=== PATIENT | female | born 1975 | race African-American/Black ===

== ENCOUNTER 2021-03-09 08:16 | Outpatient (CLI) | payer OTHER, SELFPAY ==
[2021-03-09 09:12] LABS: Creatinine Urine 73.4 mg/dL
[2021-03-09 09:18] LABS: Sodium Urine Random 57 meq/L
[2021-03-09 09:19] LABS: Anion Gap 7 mmol/L (8-16); Blood Urea Nitrogen 51 mg/dL (7-17); Calcium 9.1 mg/dL (8.4-10.2); Carbon Dioxide 21 mmol/L (22-30); Chloride 107 mmol/L (98-107); Estimated Glomerular Filt Rate 12; Glucose 42 mg/dL (65-110); Phosphorus 4.5 mg/dL (2.5-4.5); Potassium 4.5 mmol/L (3.4-5.0); Sodium 135 mmol/L (137-145)
[2021-03-09 09:37] LABS: Free T4 Free Thyroxine 0.92 ng/mL (0.78-2.19)
[2021-03-09 09:44] LABS: Cortisol Random 7.73 ug/dL; Total Triiodothyronine (T3) 1.08 NG/ML (0.97-1.69)
[2021-03-09 10:03] LABS: Total Protein Urine Random 491 mg/dL; Ur Ttl Prot Creatinine Ratio 6.69 mg/mg (0-0.20)
[2021-03-09 10:19] LABS: Eosinophil Urine None Seen % (None Seen)
[2021-03-09 11:58] LABS: Complement C3 89 mg/dL (88-165)
[2021-03-09 12:57] LABS: Hemoglobin A1C 5.8 % (<5.7)
[2021-03-12 05:13] LABS: Adrenocorticotropic Hormone 20 pg/mL (6-50)
[2021-03-12 06:53] LABS: Albumin 3.3 g/dL (3.8-4.8); Alpha 1 Globulin 0.3 g/dL (0.2-0.3); Alpha 2 Globulin 0.8 g/dL (0.5-0.9); Beta 1 Globulin 0.4 g/dL (0.4-0.6); Gamma Globulin 1.2 g/dL (0.8-1.7); Protein, Total 6.4 g/dL (6.1-8.1)
[2021-03-12 11:10] LABS: DHEA-Sulfate 126 mcg/dL (19-231)
[2021-03-13 10:28] LABS: Testosterone Total 28 ng/dL (2-45)
[2021-03-13 11:13] LABS: Metanephrine, Free 71 pg/mL (<=57); Normetanephrine, Free 157 pg/mL (<=148); Total, Free (MN + NMN) 228 pg/mL (<=205)
[2021-03-13 11:59] LABS: ANCA Screen Negative (Negative); Anti Glomerular Basement Memb <1.0 AI (<1.0)
[2021-03-14 19:43] LABS: Creatinine, Random Urine 73 mg/dL (20-275); Total Protein/Creatinine Ratio 4630 mg/g creat (21-161)
[2021-03-17 04:24] LABS: Renin 2.36 ng/mL/h (0.25-5.82)
== END 2021-03-09 08:17 | disposition home or self-care (01) ==
LOC: ANHLAB 08:21
PROVIDERS: PCP Family Medicine Sports Medicine; Visit Provider Internal Medicine Nephrology
DX: E11.29 Type 2 diabetes mellitus with other diabetic kidney complication (principal); I12.9 Hypertensive chronic kidney disease with stage 1 through stage 4 chronic kidney disease, or unspecified chronic kidney disease; N18.4 Chronic kidney disease, stage 4 (severe)
CPT/HCPCS: 36415; 80069; 82024; 82088; 82533; 82570; 82627; 83036; 83520; 83835; 84155; 84156; 84165; 84166; 84244; 84300; 84403; 84439; 84443; 84480; 85999; 86021; 86038; 86039; 86160; 86225

== ENCOUNTER 2021-08-06 19:14 | Observation (INO) | payer OTHER, SELFPAY ==
--- NOTE | ~2021-08-06 | XR_ITS ---
XR chest 1V portable DATE: 08/06/2021 20:11 INDICATION: Shortness of breath TECHNIQUE: Portable AP chest on 08/06/2021 at 2005 hours COMPARISON: 10/17/2020 PA chest FINDINGS: There is pulmonary vascular congestion and redistribution. Heart size appears borderline. There are perihilar and lower lung zone infiltrates which may be due to pulmonary edema. Pneumonia or aspiration are not excluded. Minimal if any pleural effusion. No pneumothorax. Diffuse osteopenia. Mild dextro scoliosis of the thoracic spine. IMPRESSION: Pulmonary vascular congestion bilateral primarily central and lower lung zone infiltrates , which may be due to pulmonary edema. Pneumonia is not excluded Reviewed, dictated and finalized at location A. IMPRESSION: Pulmonary vascular congestion bilateral primarily central and lower lung zone infiltrates, which may be due to pulmonary edema. Pneumonia is not e xcluded
[2021-08-06 19:17] VITALS: PULSE 103
[2021-08-06 19:20] VITALS: BP 218/85; PULSE 103; RESP 22; TEMP 36.8; O2SAT 100; BMI 36.5
[2021-08-06 19:21] VITALS: BMI 36.1
[2021-08-06 19:54] LABS: Basophils Percent Auto 0.2 % (0.2-1.2); Eosinophils Absolute Auto 0.1 K/mm3 (0-0.3); Eosinophils Percent Auto 1.2 % (0-4.4); Hematocrit 24.4 % (37.0-47.0); Hemoglobin 7.7 g/dL (12.0-15.0); Immature Granulocyte Absolute 0.03 K/mm3 (0.00-0.031); Immature Granulocyte Percent A 0.4 % (0-0.5); Lymphocytes Absolute Auto 1.02 K/mm3 (0.9-3.2); Lymphocytes Percent Auto 12.6 % (18.3-44.2); Mean Corpuscular HGB Conc 31.6 g/dl (32-36); Mean Corpuscular Hemoglobin 31.7 pg (26-34); Mean Corpuscular Volume 100.4 fl (80-100); Mean Platelet Volume 11.8 fl (7.4-10.4); Monocytes Absolute Auto 0.5 K/mm3 (0.1-0.6); Monocytes Percent Auto 6.3 % (2.6-8.5); Neutrophils Absolute Auto 6.4 K/mm3 (1.3-6.7); Neutrophils Percent Auto 79.3 % (45.5-73.1); Platelet Count Result 295 k/mm3 (150-375); Red Blood Count 2.43 M/mm3 (4.2-5.4); Red Cell Distribution Width 13.7 % (11.5-14.5); White Blood Count 8.1 K/mm3 (4.5-10.0)
[2021-08-06 20:00] VITALS: PULSE 108
--- NOTE | 2021-08-06 20:00 | ADMGEN ---
This patient, Madi Suarez, was admitted to IMU Room 231-01 at 1901. Patient/family oriented to hospital policies and general routines including ID bracelet, bed and alarms, visiting hours, pain management, procedures, bathroom and other care routines, personal items, smoking policy, room service/diet, and visiting hours. Information on how to activate the Rapid Response Team has been discussed. Patient/Family are encouraged to report perceived risks to care and to ask questions if they do not understand what they are told or what they should do.
[2021-08-06 20:03] LABS: Magnesium 1.9 mg/dL (1.6-2.3); Phosphorus 5.4 mg/dL (2.5-4.5)
[2021-08-06 20:21] LABS: Hemoglobin A1C 6.5 % (<5.7)
[2021-08-06 20:36] VITALS: BP 190/81; PULSE 100; RESP 16; TEMP 37.2; O2SAT 97
[2021-08-06 20:41] LABS: Glucose Point of Care 361 mg/dl (65-105)
[2021-08-06] MEDS: hydrALAZINE HCL 20 MG/ML VIAL 10 MG IV PUSH (20:48)
[2021-08-06] MEDS: INSULIN ASPART (*BKC) 100 UNITS/ML 12 UNITS SUB-Q (20:49)
[2021-08-06 21:10] LABS: Creatinine Urine 22.5 mg/dL; Total Protein Urine Random 170 mg/dL
[2021-08-06 21:14] LABS: Sodium Urine Random 110 meq/L
[2021-08-06 21:41] LABS: Free T4 Free Thyroxine Reflex 1.15 ng/dL (0.78-2.19)
--- NOTE | 2021-08-06 21:41 | PM.IMHP ---
H&P: HPI History of Present Illness Date/Time: Patient was placed observation status for expected length of stay less than 23 hours for management, will plan to re-evaluate tomorrow for improvement. 08/06/21 21:41 Chief Complaint: Edema Narrative: Ms. Suarez is a 45-year-old female who presented to an outside emergency room after seeing her primary care provider in being sent there for edema. Patient states that she had which her primary care provider for increasing edema and 1 she was seen was sent to the emergency room. 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 Patient states she has had dyspnea on exertion for the last month. Patient denies any chest pain, shortness with arrest, orthopnea, or PND. Patient denies any palpitations, lightheadedness, dizziness, syncopal, or near syncopal episodes. Patient states that she has not been taking her blood pressures every day because she does not like how they make her feel. Patient states that she takes her insulin as she feels it is needed. Patient states that she is supposed to be taking Humalog 20 units before meals with sliding scale, but patient only takes sliding scale based on her blood sugar. Patient states her blood glucose levels at home have been running 3-500. Patient states she cannot recall the last time that she did see her laundromat manager. Patient states that she has been urinating without any difficulty and has not noticed a decrease in her urine output. Patient denies any dysuria, hematuria, frequency, or urgency. Patient states she is a type 1 diabetic and was diagnosed at age 14. The patient states she also has a history of hypertension for which she has not been compliant with her medications. Patient also has a history of retinopathy and chronic kidney disease. Patient states she does smoke a half pack of cigarettes a day for last 29 years. Review of Systems Review of Systems: A 12 point review of systems was completed patient all pertinent positive and negative per HPI the remainder are unremarkable. [facility] Past Medical History Medical History (Updated 08/06/21 @ 23:12 by Tamara Lozano APRN) Chronic kidney disease, stage 5, kidney failure Hypertension Hypothyroidism Retinopathy Tobacco abuse Type 1 diabetes Family History Family History Mother Diabetes mellitus Social History Social History Smoking packs per day: 0.5 Smoking cigarettes per day: 10.0 Smoking status: Current every day smoker Tobacco type: cigarettes Alcohol intake: never Substance use: never Spiritual care concerns: No Meds Home Medications and Allergies Home Medications Medication Instructions Recorded Confirmed Type albuterol sulfate [ProAir HFA] 90 mcg INHALATION Q4H PRN 08/06/21 08/06/21 History buspirone 5 mg PO TID PRN 08/06/21 08/06/21 History carvedilol 25 mg PO BID 08/06/21 08/06/21 History fluticasone propionate [Allergy 1 spray INTRANASAL DAILY 08/06/21 08/06/21 History Relief (fluticasone)] insulin lispro [Humalog KwikPen 40 unit SUBCUT TID 08/06/21 08/06/21 History Insulin] levothyroxine 75 mcg PO DAILY 08/06/21 08/06/21 History pitavastatin calcium [Livalo] 1 mg PO HS 08/06/21 08/06/21 History triamcinolone acetonide 1 applic TOPICAL TID 08/06/21 08/06/21 History Allergies Allergy/AdvReac Type Severity Reaction Status Date / Time diltiazem Allergy Unknown Verified 08/06/21 20:01 metoprolol Allergy Unknown Verified 08/06/21 20:01 Tcibrkx-FHB-HdT Reductase Allergy Unknown Verified 08/06/21 20:01 Inhibitor Vital Signs Vital Signs - 24 hr 08/06/21 19:17 08/06/21 19:20 08/06/21 20:00 Temperature 36.8 C Pulse Rate 103 H 103 H 108 H Respiratory Rate 22 H Blood Pressure 218/85 H Pulse Oximetry 100 08/06/21 20:36 Temperatu
[2021-08-06] MEDS: ACETAMINOPHEN 325 MG TABLET 650 MG PO (21:54)
[2021-08-06 22:00] VITALS: PULSE 102
[2021-08-06 22:03] VITALS: BP 185/79; BP 200/78
[2021-08-06 22:41] LABS: Total Triiodothyronine (T3) 1.22 NG/ML (0.97-1.69)
[2021-08-06 23:31] LABS: Alanine Aminotransferase 27 U/L (4-35); Albumin Level 2.9 g/dL (3.5-5.1); Alkaline Phosphatase 100 U/L (38-126); Anion Gap 6 mmol/L (8-16); Aspartate Amino Transferase 21 U/L (14-36); Bilirubin,Total 0.3 mg/dL (0.2-1.3); Blood Urea Nitrogen 49 mg/dL (7-17); Calcium 8.2 mg/dL (8.4-10.2); Carbon Dioxide 18 mmol/L (22-30); Chloride 107 mmol/L (98-107); Estimated CRCL calculation 13 ml/min; Estimated Glomerular Filt Rate 9; Glucose 370 mg/dL (65-110); Potassium 4.6 mmol/L (3.4-5.0); Sodium 131 mmol/L (137-145)
[2021-08-06 23:54] LABS: Vitamin D 25 Hydroxy < 12.8 ng/mL
[2021-08-07] VITALS (11 sets, daily range): BP systolic 153–188; BP diastolic 62–74; PULSE 77–106; RESP 15–20; TEMP 36.6–37; O2SAT 98–100
[2021-08-07] MEDS: carvediloL 25 MG TABLET PO ×2 (01:43→08:36)
[2021-08-07 05:11] LABS: Basophils Percent Auto 0.4 % (0.2-1.2); Eosinophils Absolute Auto 0.2 K/mm3 (0-0.3); Eosinophils Percent Auto 2.7 % (0-4.4); Hematocrit 21.6 % (37.0-47.0); Immature Granulocyte Absolute 0.02 K/mm3 (0.00-0.031); Immature Granulocyte Percent A 0.4 % (0-0.5); Lymphocytes Absolute Auto 1.11 K/mm3 (0.9-3.2); Lymphocytes Percent Auto 20.3 % (18.3-44.2); Mean Corpuscular Hemoglobin 31.5 pg (26-34); Mean Corpuscular Volume 101.4 fl (80-100); Mean Platelet Volume 11.4 fl (7.4-10.4); Monocytes Absolute Auto 0.6 K/mm3 (0.1-0.6); Monocytes Percent Auto 11.5 % (2.6-8.5); Neutrophils Absolute Auto 3.6 K/mm3 (1.3-6.7); Neutrophils Percent Auto 64.7 % (45.5-73.1); Platelet Count Result 252 k/mm3 (150-375); Red Blood Count 2.13 M/mm3 (4.2-5.4); Red Cell Distribution Width 13.5 % (11.5-14.5); White Blood Count 5.5 K/mm3 (4.5-10.0)
[2021-08-07 05:15] LABS: Hemoglobin 6.7 g/dL (12.0-15.0)
[2021-08-07 05:20] LABS: Albumin Level 2.8 g/dL (3.5-5.1); Anion Gap 6 mmol/L (8-16); Blood Urea Nitrogen 47 mg/dL (7-17); Calcium 8.2 mg/dL (8.4-10.2); Carbon Dioxide 17 mmol/L (22-30); Chloride 109 mmol/L (98-107); Estimated CRCL calculation 13 ml/min; Estimated Glomerular Filt Rate 9; Glucose 212 mg/dL (65-110); Magnesium 1.9 mg/dL (1.6-2.3); Phosphorus 5.9 mg/dL (2.5-4.5); Potassium 4.7 mmol/L (3.4-5.0); Sodium 132 mmol/L (137-145)
[2021-08-07 05:35] LABS: Glucose Point of Care 229 mg/dl (65-105)
[2021-08-07] MEDS: LEVOTHYROXINE SODIUM 75 MCG TABLET PO (05:54)
[2021-08-07 06:10] LABS: Hematocrit 22.1 % (37.0-47.0)
[2021-08-07 07:47] LABS: Glucose Point of Care 301 mg/dl (65-105)
[2021-08-07] MEDS: HEPARIN SODIUM 5,000 UNITS/ML VIAL 5000 UNITS SUB-Q (08:39)
[2021-08-07] MEDS: INSULIN ASPART (*BKC) 100 UNITS/ML SUB-Q ×2 (08:39→12:28)
--- NOTE | 2021-08-07 10:45 | PM.CNNEP ---
Assessment and Plan Additional Plan 1. The patient has chronic kidney disease. Most likely this is due to diabetes and hypertension. It looks like both have not been under very good control over the years. Lately her sugars had been better as her A1c was only 5, likely due to retention of insulin because of her renal disease. Her creatinine was 4.8 back in March and now is 5.9. She is has had some progression of her renal disease. She is not have any morning nausea, poor appetite, change in sleep habits, or mental status changes. She does not seem to have any signs or symptoms of uremia. She does have some volume overload however. At this point she does not need emergent dialysis. We can follow her labs as we get her sugars and her blood pressure under better control. Dr. Geramn will be back on Monday. 2. The patient has hypertension. Her blood pressure was high on admission but has come down to about 150. She is currently on hydralazine as needed. I agree with restarting her carvedilol. 3. The patient has diabetes. She is on insulin sliding scale and Accu-Cheks per hospitalist. 4. The patient continues to smoke. She should quit smoking. 5. The patient has hypothyroidism. Her TSH is elevated. She is being resumed on her levothyroxine. History of Present Illness Reason for Consult Consult date: 08/07/21 Chief Complaint Chief complaint: Chronic Renal Failure History of Present Illness Narrative: ?Hernia is a very pleasant 45-year-old lady who has multiple medical problems including chronic kidney disease stage 5 under the care of Dr. German, diabetes, retinopathy, neuropathy, hypertension, tobacco use, hypothyroidism. The patient came in the hospital because she did not feel well. She went to the emergency room in [place] and was found to have an elevated creatinine. She was sent for further evaluation at [facility] because they have no fuel cell engineer in [place]. The patient has had some edema. She also has had some shortness of breath with exertion. This has all been going on for the last month. She follows her blood pressure at home. Generally she runs 140s to 150s but in the last couple of weeks it is been 160s to 180s. She follows her blood sugars at home as well. Her last A1c was 5 in May which was surprising to her. However she has not had 1 since then. Her blood sugars have been high at home in the last few days. Last time she saw Dr. German the talked about her getting on the transplant list, getting some education about dialysis. Since she saw Dr. German she moved to [place]. So she did not do either of those tasks. Review of Systems Constitutional: Constitutional: Reports no additional constitutional complaints Eyes: Eyes: Reports no additional eye complaints ENT: Reports system reviewed and no additional complaints, except as documented Cardiovascular: Cardiovascular: Reports no additional cardiovascular complaints Respiratory: Respiratory: Reports no additional respiratory complaints Gastrointestinal: Gastrointestinal: Reports no additional gastrointestinal complaints Genitourinary: Genitourinary: Reports no additional female genitourinary complaints Musculoskeletal: Musculoskeletal: Reports no additional musculoskeletal complaints Integumentary/Breasts: Skin/Breast: Reports system reviewed and no additional complaints, except as docu Neurologic: Reports system reviewed and no additional complaints, except as documented Psychiatric: Psychiatric: Reports no additional psychiatric complaints Endocrine: Endocrine: Reports no additional endocrine complaints [facility] Past Medical History Medical History Chronic kidney disease, stage 5, kidney failure Hypertension Hypothyroidism Retinopathy Tobacco abuse Type 1 diabetes Family History Family History Mother
[2021-08-07 11:52] LABS: Glucose Point of Care 286 mg/dl (65-105)
--- NOTE | 2021-08-07 13:29 | PM.DS ---
DS: Admitting Diagnosis Discharge Date June 01, 2021 Admitting Diagnosis chronic kidney disease DS: Discharge Diagnosis Discharge Diagnosis (1) Chronic kidney disease, stage 5, kidney failure: Code(s): N18.5 - Chronic kidney disease, stage 5 Status: Acute Assessment and Plan: Chronic kidney disease stage 5. Nephrology was consulted outpatient monitoring. Patient will likely need hemodialysis in the near future. No urgent need for dialysis here (2) Type 1 diabetes: Code(s): E10.9 - Type 1 diabetes mellitus without complications Status: Acute Assessment and Plan: Continue home meds. 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 She will follow up with her primary care physician. Noncompliance (3) Hypertension: Code(s): I10 - Essential (primary) hypertension Status: Acute Assessment and Plan: Noncompliance to blood pressure meds. Recommended she continue using home on discharge. Patient expressed agreement (4) Tobacco abuse: Code(s): Z72.0 - Tobacco use Status: Acute Assessment and Plan: Cessation counseled (5) Hypothyroidism: Code(s): E03.9 - Hypothyroidism, unspecified Status: Acute Assessment and Plan: Multiple times within normal limits follow-up CT DS: Summary Hospital Course Hospital Course: [facility] plan and diagnoses. Time Spent with Patient Time attestation: Total time spent providing and/or coordinating discharge services: 45 min Exam Narrative: Constitutional: Patient is well-nourished in no acute distress. Patient is alert and oriented x3 HEENT: Moist mucous membranes. No scleral icterus. No lymphadenopathy. Neck: No carotid bruits noted no JVD noted Lungs: Lung sounds are clear to auscultation bilaterally. No accessory muscle use. No rhonchi, rales, or wheezes noted. Cardiovascular: Apical pulse is regular rate and rhythm. S1-S2 noted, no S3 or S4 noted. No gallops, murmurs, or rubs noted. Abdomen: Soft, round, and nontender. No palpable masses. Extremities: 1+ edema to bilateral lower extremities. Nontender. Skin: No rashes or lesions. Warm and dry. Skin is intact. Neurological: No focal neurological deficits. Cranial nerves II-XII grossly intact. Psychiatric: Cooperative, appropriate mood, and affect DS: Data Data Completed and Pending Labs on day of discharge: Labs from last 24 hours 08/07/21 08/07/21 08/07/21 12:23 11:38 07:17 WBC RBC Hgb 7.0 L Hct 22.0 L MCV MCH MCHC RDW Plt Count MPV Immature Gran % (Auto) Neut % (Auto) Lymph % (Auto) [place] % (Auto) Eos % (Auto) Baso % (Auto) Lymph # (Auto) [place] # (Auto) Eos # (Auto) Baso # (Auto) Abs Immat Gran (auto) Absolute Neuts (auto) Absolute Nucleated RBC Nucleated RBC % Sodium Potassium Chloride Carbon Dioxide Anion Gap BUN Creatinine Estim Creat Clear Calc Estimated GFR Glucose POC Capillary Glucose 286 H 301 H Hemoglobin A1c Calcium Phosphorus Magnesium Total Bilirubin AST ALT Alkaline Phosphatase Total Protein Albumin Vitamin D 25-Hydroxy TSH (Reflex) Free T4 Total T3 PTH Related Protein U Random Total Protein Ur Random Sodium Urine Creatinine 08/07/21 08/07/21 08/07/21 06:05 05:30 05:05 WBC RBC Hgb 7.0 L Hct 22.1 L MCV MCH MCHC RDW Plt Count MPV Immature Gran % (Auto) Neut % (Auto) Lymph % (Auto) [place] % (Auto) Eos % (Auto) Baso % (Auto) Lymph # (Auto) [place] # (Auto) Eos # (Auto) Baso # (Auto) Abs Immat Gran (auto) Absolute Neuts (auto) Absolute Nucleated RBC Nucleated RBC % Sodium 132 L Potassium 4.7 Chloride 109 H Carbon Dioxide 17 L Anion Gap 6 L BUN 47 H Creatinine 5.90 H Estim Creat Clear Calc 13
[2021-08-12 16:57] LABS: Parathyroid Hormone Related Pr 23 pg/mL (11-20)
== END 2021-08-07 14:27 | disposition home or self-care (01) ==
PROVIDERS: Internal Medicine; Nurse Practitioner Adult Health; Admitting Provider Internal Medicine; PCP Family Medicine Sports Medicine; Visit Provider Chiropractor
DX: I12.0 Hypertensive chronic kidney disease with stage 5 chronic kidney disease or end stage renal disease (principal); E10.22 Type 1 diabetes mellitus with diabetic chronic kidney disease; N18.6 End stage renal disease; R60.0 Localized edema; R06.09 Other forms of dyspnea; Z79.4 Long term (current) use of insulin; E03.9 Hypothyroidism, unspecified; E10.319 Type 1 diabetes mellitus with unspecified diabetic retinopathy without macular edema; E10.40 Type 1 diabetes mellitus with diabetic neuropathy, unspecified; F17.210 Nicotine dependence, cigarettes, uncomplicated; Z79.51 Long term (current) use of inhaled steroids
CPT/HCPCS: 36415; 71045; 80053; 80069; 81050; 82306; 82570; 82948; 83036; 83519; 83735; 84100; 84156; 84300; 84439; 84443; 84480; 85014; 85018; 85025; 96372; 96374; A9270; G0378; G0379; J0360; J1644; J1815

== ENCOUNTER 2025-03-11 09:17 | Outpatient (CLI) | payer MEDICARE, SELFPAY ==
--- OUTSIDE RECORDS SUMMARY | 2023-12-01 07:30 | XMS_ITS ---
Author Organization [facility] Address [address] [facility] [address] [place] [address] Care Team Providers Care Gate Watch Name Role Phone Coretta Sahu Primary Care Provider Tam Cardenas [phone] REASON FOR VISIT Dexcom Encounters Encounter Location Date Provider Diagnosis [place] [address] [place] [address] 12/01/2023 Tam Thompson Plan Of Treatment No Information Progress Notes * Evelin SUAREZ LDOB: [birth year] (49 yo F)Acc No.[id number]:12/01/2023 Patient: Evelin PEGUERO Provider: Juan F Thompson MD :1975 A ge:48 Y S ex:Female Date:12/01/2023 Address:[address] , [address] [address] Pcp:Coretta Sahu Subjective: * Chief Complaints: * 1 . Dexcom. Objective: * Vitals: Assessment: Plan: * Treatment: * Billing Information: * Visit Code: * Procedure Codes: * Electronic signature of Sunni Thompson MD on 03/11/2025 at 09:35 AM EMERGENCY VETERINARY ASSISTANT Sign off status: Pending * Provider: Juan F Thompson MD Date: 0 12/01/2023 Generated for Printi ng/Faxing/eTransmitting on: 1 05/11/2024 09:35 AM EMERGENCY VETERINARY ASSISTANT
--- OUTSIDE RECORDS SUMMARY | 2024-06-14 08:15 | XMS_ITS ---
Author Organization [facility] Address [address] [place] [facility] [address] [place] [address] Care Team Providers Care Crime Scene Investigator Name Role Phone Coretta Sahu Primary Care Provider Tam Cardenas Unavailable [phone] REASON FOR VISIT Dexcom, Dexcom, Diabetes Medications Medication SIG (Take, Route, Frequency, Duration) Notes Start Date End Date Status Carvedilol 25 MG 2 tabs Orally 2 time s a day duplicate Active Calcium Acetate 667 MG 2 tablets with me als Orally Three times a day; Duration: 30 day(s) Active BD Pen Needle Alexa 2nd Gen 32G X 4 MM to inject insulin subcutaneously Four times a day E10.65 Active OneTouch Ultra - to test blood sugars by finger stick Four times a day E10.65 Active Tresiba FlexTouch 100 UNIT/ML 20 units subcutaneously Once a day E10.65 Active NIFEdipine ER 90 MG 1 tablet on an empty stomach Orally Once a day Active COPY CHIEF Thyroid 90 MG 1 tablet on an empty stomach Orally Once a day; Duration: 90 days 02/09/2024 Active Dexcom G7 Sensor - - - every 10 days 08/11/2023 Active Gvoke HypoPen 2-Pack 1 MG/0.2ML inject entire contents Subcutaneous for hypo event Active HumaLOG KwikPen 200 UNIT/ML 10 units subcutaneously Three times a day Active Dexcom G7 Director [employer] - as directed Active Encounters Encounter Location Date Provider Diagnosis [facility] [address] [place] [address] 06/14/2024 Tam Thompson Hyperglycemia due to type 1 diabetes mellitus E10.65 ; Type 1 diabetes mellitus with diabetic polyneuropathy E10.42 ; Essential (primary) hypertension I10 ; Mixed hyperlipidemia E78.2 ; Carotid bruit R09.89 ; ESRD (end stage renal disease) N18.6 ; snf (current) use of insulin Z79.4 ; Hypothyroidism (acquired) E03.9 ; Tobacco abuse Z72.0 ; Dietary counseling and surveillance Z71.3 and Other obesity due to excess calories E66.09 Assessments Encounter Date Diagnosis (ICD Code) Assessment Notes Treatment Notes Treatment Clinical Notes Section Notes 06/14/2024 Hyperglycemia due to type 1 diabetes mellitus (ICD-10 - E10.65) Takes insulin 4 times a day and test blood sugars 4 times a day. Old records reveiwed DM since age 15 Explained in detail about how to adjust insulin before meals. On Dialysis Mar 2024: Dexcom reviewed, PP hyperglycemia and overnight hypoglycemi due to insulin taken post meals Tresiba 18 units three days a week Meal insulin 5 plus SS, advised to do before meals not after, ESRD on dialysis, awaiting transplant TSH 30 as she ran out of meds for a week at the time of the lab Restart med and recheck in 6 weeks 06/14/2024 Type 1 diabetes mellitus with diabetic polyneuropathy (ICD-10 - E10.42) 06/14/2024 Essential (primary) hypertension (ICD-10 - I10) controlled. 2 g sodium diet. Blood pressure goal less than 130/80. 06/14/2024 Mixed hyperlipidemia (ICD-10 - E78.2) COntrolled. LDL goal < 100. 06/14/2024 Carotid bruit (ICD-10 - R09.89) 06/14/2024 ESRD (end stage renal disease) (ICD-10 - N18.6) 06/14/2024 snf (current) use of insulin (ICD-10 - Z79.4) 06/14/2024 Hypothyroidism (acquired) (ICD-10 - E03.9) 06/14/2024 Tobacco abuse (ICD-10 - Z72.0) 06/14/2024 Dietary counseling and surveillance (ICD-10 - Z71.3) 06/14/2024 Other obesity due to excess calories (ICD-10 - E66.09) Plan Of Treatment Treatment Notes Assessment Notes Hyperglycemia due to type 1 diabetes leslie litus Takes insulin 4 times a day and test blood sugars 4 times a day. Progress Notes * Evelin SUAREZ LDOB: [birth year] (49 yo F)Acc No.[id number]:06/14/2024 Patient: Evelin PEGUERO Provider: Juan F Thompson MD :1975 A ge:48 Y S ex:Female Date:06/14/2024 Address:[address] [place] [address] , [place] [address] Pcp:Coretta Sahu Subjective: * Chief Complaints: * 1 . Dexcom. 2. Dexcom. 3. Diabetes. Objective: * Vitals: Assessment: * Assessment: 1. H yperglycemia due to type 1 diabetes mellitus - E10.65 (Primary) 2 . T ype 1 diabetes mellitus with diabetic polyneuropathy - E10.42 3 . E ssential (primary) hypertension - I10 4 . M ixed hyperlipidemia - E78.2 5 . Carotid bruit - R09.89 6 . E SRD (end stage renal disease) - N18.6 ? 7 . L marino term (current) use of insulin - Z79.4 8 . H ypothyroidism (acquired) - E03.9 9 . T obacco abuse - Z72.0 1 0. D ietary counseling and surveillance - Z71.3 1 1. O ther obesity due to excess calories - E66.09 Plan: * Treatment: 2. E ssential (primary) hypertension Clinical Notes: controlled. 2 g sodium diet. Blood pressure goal less than 130/80. 3. M ixed hyperlipidemia Clinical Notes:COntrolled. LDL goal < 100. * Billing Information: * Visit Code: * Procedure Codes: * Electronic signature of Sunni Thompson MD on 03/11/2025 at 09:35 AM EXECUTIVE ADMINISTRATIVE ASSISTANT Sign off status: Pending * Provider: Juan F Thompson MD Date: 0 06/14/2024 Generated for Ang boswell/Mark/eTtcsmitting on: 1 05/11/2024 09:35 AM EXECUTIVE ADMINISTRATIVE ASSISTANT History and Physical Notes * HPI (History of Present Illness) Category Sub-Category Detail Notes Category Not es Interim History Tests/Studies: Consultations Hospitalizations Emergency Department visits Changes in PMH Since last visit History since last visit Medication changes Surgery Diabetes Diabetes Duration: > 30 years Since age 14 Current Treatment: Insulin Mar 2024: Humalog non dialysis days Tresiba 18 units Three days a week. 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 Bracelet: No Do you check BS before Driving: No Education Barriers: None DM management complicated by : Noncompliance with Diet, Noncomplaince with Exercise Weight Change: Stable Autonomic Neuropathy abdominal fullness nausea vomiting urinary problems sexual difficulty night sweats cold feet leg swelling dizziness Registry FLU Vaccine Status: Received Pneumonia Vaccine Status: Not Received Smoking Status: Current 1/2 PPD since Date Assessed: 10/30/2020 Cessation Counselling Provided: 10/31/19 Depression Screening PHQ-2 Little interest or pleasur e in doing things?: No Feeling Down, Depressed or Hopeless?: No Social Assessments Health Literacy Low Health Literacy: No Cognitive Assessment Cognitive Dysfunction: No Functional Assessment Visual Impairment: No Hearing Impairment: No Mobility/Dexerity Issues: No Swallowing Problems: No Frequent Falls: No Functional Status: 1 Losing Balance: No Dependence for ADL: No Risk for Fall: No Social Support Assessment Isolation: No Transportation difficulties: No Lack of motivation: No Caregiver Stress: No Financial Difficulties: No Major Events self/family Members interfe ring with self-Care: No Difficulty with care corodination and fa cilitation: No Nonadherence: No Inadequate Medical Visits: No Inadequate Monitoring: No Not integrating recommendations from Pro viders: No Health Beliefs interfering with therapy: No Living Condition Lives with: Significant Other Lives in: Home Functional Barriers at the living place: No Caregiver: Self Examination Category Sub-Category Detail Notes Category Not es General Examination HEENT: Normocephalic, atraum atic Neck, Thyroid : Supple, no thyromega ly, no lymphadenopathy, no JVD, no carotid bruit Heart: RRR, normal S1S2, Sy s murmur and Left carotid bruit, rub, or gallop Lungs: Clear to auscultatio n bilaterally, no wheezes, rhonchi, or rales Abdomen: Soft, NT/ND, BS pres ent, no guarding or rebound, no masses palpated, no hepatosplenomegaly Extremities: No clubbing, cyanosi s, or edema, pulses 2+ bilaterally General Appearance: Well developed and w ell- nourished, NAD Skin: No rash or skin lesi ons Neurologic Exam: Non-focal exam, CN's II-XII grossly intact Oral Cavity Normal, moist mucus membranes Diabetic Foot Exam Visual Inspection: Exam Perfo rmed : Yes Date:: 12/31/2021 Bilateral leg swelli ng Nails: Normal Skin: Normal Pulses: Normal Vibration: Reduced Monofilament: Normal Footwear Evaluation Performed: Yes Images: 12/31/2021 Opthamology Referral Diabetic Retinopathy Screen ing: Yes Procedure Performed: Yes Date: Seen by Telemed Date seen: 02/09/2024
--- OUTSIDE RECORDS SUMMARY | 2025-01-31 08:30 | XMS_ITS ---
Author Organization [facility] Address [address] [facility] [address] [place] [address] Care Team Providers Care Belt Press Operator Name Role Phone Coretta Sahu Primary Care Provider Tam Cardenas Unavailable [phone] REASON FOR VISIT Dexcom, Diabetes Medications Medication SIG (Take, Route, Frequency, Duration) Notes Start Date End Date Status Lancets - use one lancet to check blood glucose levels three times a day; Duration: 90 days ; please dispense per insurance formulary. 11/21/2024 Active Gvoke HypoPen 2-Pack 1 MG/0.2ML inject entire contents Subcutaneous for hypo event; Duration: 90 days Active SOLAR INSTALLATION CREW SUPERVISOR Thyroid 120 MG 1 tablet on an empty stomach Orally Once a day; Duration: 30 days patient must call office for refills; E03.9 02/09/2024 Active Contour Next Gen Monitor w/Device dispense one kit for blood sugar monitoring three times a day; Duration: 30 days 11/21/2024 Active Contour Next Test - use one strip via meter 3 times a day; Duration: 90 days 11/21/2024 Active HumaLOG KwikPen 200 UNIT/ML 10 units subcutaneously Three times a day Active hydrALAZINE HCl 50 MG 1 tablet with food Orally Twice a day Active OneTouch Ultra - to test blood sugars by finger stick Four times a day Active Insulin Degludec FlexTouch 100 UNIT/ML inject 20 units Subcutaneous once a day formulary compliance; E1006/27/2024 Active NIFEdipine ER 90 MG 1 tablet on an empty stomach Orally Once a day Active Dexcom G7 Sensor - - - every 10 days 08/11/2023 Active Carvedilol 25 MG 2 tabs Orally 2 time s a day duplicate Active traZODone HCl 100 MG Oral; Duration: 30 Days Active BD Pen Needle Alexa 2nd Gen 32G X 4 MM to inject insulin subcutaneously Four times a day E10.65 Active Dexcom G7 Pottery Decoration Designer - as directed Active Calcium Acetate 667 MG 2 tablets with meals Orally Three times a day; Duration: 1 days DENIED: Provider does not manage this medication. Please have patient contact her PCP. Thank you. Active PARoxetine HCl 10 MG Oral; Duration: 30 Days Active Azelastine HCl 0.05 % Ophthalmic; Duration: 90 Days Active Encounters Encounter Location Date Provider Diagnosis [place] [address] [place] [address] 01/31/2025 Tam Thompson Hyperglycemia due to type 1 diabetes mellitus E10.65 ; Type 1 diabetes mellitus with diabetic polyneuropathy E10.42 ; Essential (primary) hypertension I10 ; Mixed hyperlipidemia E78.2 ; Carotid bruit R09.89 ; ESRD (end stage renal disease) N18.6 ; intermediate frame tender (current) use of insulin Z79.4 ; Hypothyroidism (acquired) E03.9 ; Tobacco abuse Z72.0 ; Dietary counseling and surveillance Z71.3 and Other obesity due to excess calories E66.09 Assessments Encounter Date Diagnosis (ICD Code) Assessment Notes Treatment Notes Treatment Clinical Notes Section Notes 01/31/2025 Hyperglycemia due to type 1 diabetes mellitus (ICD-10 - E10.65) Takes insulin 4 times a day and test blood sugars 4 times a day. Old records reveiwed DM since age 15 Explained in detail about how to adjust insulin before meals. On Dialysis July 2024: Dexcom reviewed, PP hyperglycemia and overnight hypoglycemi due to insulin taken post meals Tresiba 18 units three days a week Meal insulin 3 plus SS, advised to do before meals not after, ESRD on dialysis, awaiting transplant TSH 11 on 90 mg, cahnge to 120 mg 01/31/2025 Type 1 diabetes mellitus with diabetic polyneuropathy (ICD-10 - E10.42) 01/31/2025 Essential (primary) hypertension (ICD-10 - I10) controlled. 2 g sodium diet. Blood pressure goal less than 130/80. 01/31/2025 Mixed hyperlipidemia (ICD-10 - E78.2) COntrolled. LDL goal < 100. 01/31/2025 Carotid bruit (ICD-10 - R09.89) 01/31/2025 ESRD (end stage renal disease) (ICD-10 - N18.6) 01/31/2025 intermediate frame tender (current) use of insulin (ICD-10 - Z79.4) 01/31/2025 Hypothyroidism (acquired) (ICD-10 - E03.9) 01/31/2025 Tobacco abuse (ICD-10 - Z72.0) 01/31/2025 Dietary counseling and surveillance (ICD-10 - Z71.3) 01/31/2025 Other obesity due to excess calories (ICD-10 - E66.09) Plan Of Treatment Treatment Notes Assessment Notes Hyperglycemia due to type 1 diabetes leslie beckus Takes insulin 4 times a day and test blood sugars 4 times a day. Progress Notes * Evelin SUAREZ LDOB: [birth year] (49 yo F)Acc No.[id number]:01/31/2025 Patient: Evelin PEGUERO Provider: Juan F Thompson MD :1975 A ge:49 Y S ex:Female Date:01/31/2025 Address:[address] [place] [address] , [place] [id number] Pcp:Coretta Sahu Subjective: * Chief Complaints: * 1 . Dexcom. 2. Diabetes. Objective: * Vitals: Assessment: * Assessment: [...] Thompson MD on 03/11/2025 at 09:35 AM DRAWING TRACER Sign off status: Pending * Provider: Juan F Thompson MD Date: Generated for Ang boswell/Mark/eTransmitting on: 05/11/2024 09:35 AM DRAWING TRACER History and Physical Notes * HPI (History of Present Illness) Category Sub-Category Detail Notes Category Not es Interim History Tests/Studies: Consultations Hospitalizations Emergency Department visits Changes in PMH Since last visit History since last visit Medication changes Surgery Diabetes Diabetes Duration: > 30 years Since age 14 Current Treatment: Insulin July 2024: Humalog 5plus SS Tresiba 18 units Three days a week. 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
--- NOTE | ~2025-03-11 | CT_ITS ---
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 Technique: Axial images obtained of the brain without contrast. One or more of the following dose reduction techniques were used: automated exposure control, adjustment of the mA and/or kV according to patient size, use of iterative reconstruction technique. Findings: No acute infarct or parenchymal hemorrhage. No abnormal mass or mass effect. No midline shift. No extra-axial fluid collections. No hydrocephalus. Mastoid air cells unremarkable. Sinuses and orbits unremarkable. No acute fracture. No significant facial or scalp soft tissue swelling evident. No radiopaque foreign body is seen. Impression: 1.No acute intracranial abnormality. Reviewed, dictated and finalized at location P. ER DRIVER Impression: 1.No acute intracranial abnormality.
--- OUTSIDE RECORDS SUMMARY | 2025-03-11 09:35 | XMS_ITS | Encounter Summary ---
Author Organization [facility] Address [address] [place] [address] Care Team Providers Care Sandfill Operator Name Role Phone Coretta Sahu DO Primary Care Provider Mirella Rasmussen RN Unavailable Louis Fenton MD Unavailable Mahendra Singletary MD Unavailable [phone] Juwan Hurtado MD Unavailable [phone] Encounter Details Date Type Department Care Team (Late st Contact Info) Description 03/09/2023 [facility] [address] [place], [place] [id number] Shiraz Kunz MD [address] [facility] [address] [place], [place] [id number] Social History Tobacco Use Types Packs/Day Years Used Date Smoking Tobacco: Every Day Cigarettes 0.5 8 Passive Smoke Exposure: Current AUDIT-C Answer Date Recorded Q1: How often do you have a drink containing alcohol? Never 10/11/2022 Q2: How many drinks containi ng alcohol do you have on a typical day when you are drinking? Patient does not drink Q3: How often do you have si x or more drinks on one occasion? Never 10/11/2022 Comments Unknown Sex and Gender Information Value Date Recorded Sex Assigned at Not on file Legal Sex Female 4:44 PM SILVER BUFFER Gender Identity Female 09/21/2022 10:17 AM CDT Sexual Orientation Straight 09/21/2022 10 :17 AM CDT documented as of this encounter Functional Status * BP Location Answer Date of Assessment Author Right arm 03/09/2023 10:02 AM SILVER BUFFER Savi Chung MA * Alcohol Withdrawal BP Hierarchy Answer Date of Assessment Author 66 03/09/2023 10:02 AM SILVER BUFFER Savi Chung MA * BP Location Answer Date of Assessment Author Right arm 03/09/2023 10:02 AM Savi Nunez MA documented as of this encounter Plan of Treatment Not on file documented as of this encounter Visit Diagnoses Not on filedocumented in this encounter Care Teams Sandfill Operator Relationship Specialty Start Date End Date Goran SahucyDO [address] [place] [address] [place] [address] PCP - General Sports Medicine 03/31/22 Mirella Rasmussen, RN [address] [address] Sawmill Moulder Operator 03/31/22 Louis Fenton MD [address] [place] [address] [place] [address] Nephrology 04/18/22 Mahendra Singletary MD Three [facility]. [address] [id number] Consulting Physician Cardiovascular Disease 12/21/23 Juwan Hurtado MD Three [facility]. [facility] [address] [place], [place] [address] Consulting Physician Cardiology 05/09/24 documented as of this encounter
--- OUTSIDE RECORDS SUMMARY | 2025-03-11 09:35 | XMS_ITS ---
Author Organization [facility] Address [address] [place] [id number] Care Team Providers Care Alarm Adjuster Name Role Phone Coretta Sahu DO Primary Care Provider [phone] Mirella Rasmussen RN Unavailable Louis Fenton MD Unavailable Mahendra Singletary MD Unavailable [phone] Juwan Hurtado MD Unavailable [phone] Transplant Episode Kidney Candidate [facility] ([place], [place]) [facility] waitlisted on 05/30/2023 Marked as Inactive on 12/21/2023 Reason: 07 - Temporarily Too Sick Kidney CoordinatorMirella Rasmussen RN Fax: N/A Email: N/A Scores Score Value Updated Exceptions/Reas ons CPRA Not available EPTS (Calc) 65 03/11/2025 [place] Organ Diagnosis Organ Primary Contributory Kidney Diabetes Mellitus - Type I Care Team Name Role Phone Fax Email Mirella Rasmussen RN Kidney Coordinator [phone] N/A N/A Alejo Scott Preschool Assistant Teacher N/A N/A N/A Dina Bell Primary Station Supervisor N/A N/A N/A Louis Fenton MD Referring Physician [phone] N/A Events Pre-Transplant Referred: 03/31/2022 Evaluation began: 06/15/2022 Committee: 05/29/2023 UNOS qualified: 11/15/2021 Center waitlisted: 05/30/2023 Dialysis History Dialysis History Start End Type Comments Center 11/15/2021 In-center Hemodialysis [facility] Information Center Phone Fax Address [facility] [phone] [place] [address]
--- OUTSIDE RECORDS SUMMARY | 2025-03-11 09:35 | XMS_ITS | Encounter Summary ---
Author Organization [facility] Address [address] [place] [address] Care Team Providers Care Concrete Stone Fabricator Name Role Phone Coretta Sahu DO Primary Care Provider [phone] Mirella Rasmussen RN Unavailable [phone] Louis Fenton MD Unavailable Mahendra Singletary MD Unavailable [phone] Juwan Hurtado MD Unavailable [phone] Encounter Details Date Type Department Care Team (Late st Contact Info) Description 11/14/2022 Telephone [facility] at [facility] [address] [place], [place] [id number] Barron Kunz MD [address] [address] [place] [address] [place], [place] [id number] Social History Tobacco Use Types Packs/Day Years [...] on file Legal Sex Female 4:44 PM SUPERVISOR LIQUEFACTION Gender Identity Female 09/21/2022 10:17 AM CDT Sexual Orientation Straight 09/21/2022 10 :17 AM CDT documented as of this encounter Plan of Treatment Not on file documented as of this encounter Visit Diagnoses Not on filedocumented in this encounter Care Teams Concrete Stone Fabricator Relationship Specialty Start Date End Date Coretta Sahu DO [address] [place] [address] [place] [address] PCP - General Sports Medicine 03/31/22 Mirella Rasmussen, RN [address] [facility] [address] [place] [address] Circulation Representative 03/31/22 Louis Fenton MD [address] [place] [address] [place] [address] Nephrology 04/18/22 Mahendra Singletary MD [address] [id number] Consulting Physician Cardiovascular Disease 12/21/23 Juwan Hurtado MD [facility]. [address] [place] [address] Consulting Physician Cardiology 05/09/24 documented as of this encounter
--- OUTSIDE RECORDS SUMMARY | 2025-03-11 09:35 | XMS_ITS | Clinical Summary ---
Author Organization [facility] Address [address] [place] [address] Phone Care Team Providers Care Quality Assurance Auditor Name Role Phone Coretta Sahu DO Primary Care Provider [phone] Imani Saldana MD Unavailable Coretta Sahu DO Unavailable Allergies Active Allergy Reactions Criticality Noted Date Comments Diltiazem Hives,Other (see Comments),Unknown Medium 06/23/2017 Tachycardia Tachycardia Tachycardia Tachycardia Iodine Rash Medium 02/14/2024 Levothyroxine Unknown Low 02/14/2024 Metoprolol Unknown,Palpitations Low 06/23/2017 Tachycardia Tachycardia Tachycardia Povidone Iodine Rash Low 03/09/2023 Povidone-Iodine Rash Medium 03/09/2023 Rosuvastatin Unknown,Itching,Rash Medium 01/10/2019 Also elevated glucose levels Medications B Ezonpji-A-Fckji Acid (JUSTO-CARINE PO) Take by mouth daily. 5 Active bumetanide (BUMEX) 2 MG Tablet TAKE 1 TABLET BY MOUTH DAILY ON NON-DIALYSIS DAYS (, , SAT, SUN) 5 Active calcitRIOL (ROCALTROL) 0.25 MCG Capsule Take 0.25 mcg by mouth. Active calcium acetate, Phos Binder, (PHOSLO) 667 MG Capsule TAKE 2 CAPSULES BY MOUTH 3 TIMES A DAY WITH MEALS 4 Active carvedilol (COREG) 25 MG Tablet Take 12.5 mg by mouth. 3 Active dicyclomine (BENTYL) 10 MG Capsule Take 10 mg by mouth. 5 Active Fluticasone Furoate-Vilante rol (Breo Ellipta) 100-25 MCG/ACT AEROSOL POWDER, BREATH ACTIVATED take 1 Puff by inhalation. 4 Active fluticasone (FLONASE) 50 MCG/ACT Suspension 2 Sprays by Nasal route. 1 Active gabapentin (NEURONTIN) 100 MG Capsule 100 am and 200 hs 5 Active hydrALAZINE HCl 100 MG Tablet Take 100 mg by mouth. 5 Active hydrOXYzine (ATARAX) 25 MG Tablet TAKE 1 TABLET BY MOUTH NIGHTLY NEEDED FOR ITCHING 4 Active insulin degludec (Tresiba FlexTouch) 100 UNIT/ML Solution Pen-injector 13 Units by Subcutaneous route. 5 Active HumaLOG KwikPen 200 UNIT/ML Solution Pen-injector 0-20 Units by Subcutaneous route. 1 Active levothyroxine (SYNTHROID) 100 MCG Tablet Take 100 mcg by mouth every morning. 5 Active loperamide (IMODIUM) 2 MG Capsule TAKE 1 CAPSULE BY MOUTH 4 TIMES DAILY NEEDED FOR DIARRHEA. 3 Active NIFEdipine (PROCARDIA-XL) 90 MG TABLET SR 24 HR Take 90 mg by mouth. 5 Active nitroGLYCERIN (NITROSTAT) 0.4 MG SL Tablet 0.4 mg by Sublingual route. 4 Active pantoprazole (PROTONIX) 40 MG Tablet Delayed Response Take 40 mg by mouth daily. 5 Active PARoxetine (PAXIL) 10 MG Tablet Take 10 mg by mouth. Active traZODone (DESYREL) 100 MG Tablet Take 100 mg by mouth. 5 Active Active Problems Problem Noted Date Diagnosed Date Anemia 03/03/2025 Encounters Date Type Department Care Team Description 03/03/2025 11:15 AM HYPERION ESSBASE DEVELOPER Office [facility] [address] [place] [address] Imani Saldana MD Anemia, unspecified type (Primary Dx); ESRD on dialysis 03/03/2025 11:00 AM HYPERION ESSBASE DEVELOPER Clinical Support [facility] [place] [address] [place] [address] Nurse, Cc Radha Anemia, unspecified type 03/03/2025 Travel 02/24/2025 Travel from Last 3 Months Family History Medical History Relation Name Comments Diabetes Brother Diabetes Mother Kidney Disease Mother Hypertension Sister Relation Name Status Comments Brother Alive Father Mother Alive Sister Alive Social History Tobacco Use Types Packs/Day Years Used Date Smoking Tobacco: Some Days Cigarettes 0.5 30 Started: 02/24/1995 Smokeless Tobacco: Never Tobacco Cessation:Ready to Q uit: No; Counseling Given: Yes Alcohol Use Standard Drinks/Week Comments Never 0 (1 standard drink = 0.6 oz pur e alcohol) Comments Unknown Sex and Gender Information Value Date Recorded Sex Assigned at Not on file Legal Sex Female 10:51 PM CDT Gender Identity Not on file Sexual Orientation Not on file Last Filed Vital Signs Vital Sign Reading Time Taken Comments Blood Pressure 132/60 03/03/2025 11:19 AM HYPERION ESSBASE DEVELOPER Pulse 84 03/03/2025 11:19 AM HYPERION ESSBASE DEVELOPER Temperature 36.7 C (98 F) 03/03/2025 11:19 AM HYPERION ESSBASE DEVELOPER Respiratory Rate - - Oxygen Saturation 97% 03/03/2025 11: 19 AM HYPERION ESSBASE DEVELOPER Inhaled Oxygen Concentration - - Weight 76.1 kg (167 lb 12.8 oz) 025 11:19 AM HYPERION ESSBASE DEVELOPER Height 167.6 cm (5' 6) 03/03/2025 11:1 9 AM HYPERION ESSBASE DEVELOPER Body Mass Index 27.08 03/03/2025 11:19 AM HYPERION ESSBASE DEVELOPER Plan of Treatment Upcoming Encounters Date Type Department Care Team (Late st Contact Info) Description 03/17/2025 11:00 AM HYPERION ESSBASE DEVELOPER Office [facility] [place] [address] [place] [id number] Imani Saldana MD [address] [place] [address] Health Maintenance Due Date Last Done Comments Pap Smear 1994 Cervical Cancer Screening (CCS) 08/31/2003 HPV/Cotest 08/31/2003 Hepatitis B Immunization (3 of 3 - 19+ 3-dose series) 02/25/2009 09/30/2008, 08/26/2008 Cologuard 2018 Immunochemical Fecal Occult Blood 2018 Respiratory Syncytial Virus (RSV) Immunization (Adult) (1 - Risk 50-74 years 1-dose series) 08/31/2023 Zoster Immunization (1 of 2) 08/31/2023 Welcome to Medicare (IPPE) G0402 07/30/2024 SARS-COV-2 Immunization ( - 2024- season) 2024 06/17/2020, 05/20/2020 Mammogram 02/18/2026 02/18/2025, 01/30, 02/15/2024, Additional history exists Colonoscopy 04/18/2033 04/18/2023 Colorectal Cancer Screening 04/18/2033 Pneumococcal Immunization (50+ years) Completed 11/08/2022, 02/08/2022 TdaP Immunization Completed 11/17/2022, 05/24/2012 Hepatitis C Virus (HCV) Screening Completed 07/06/2024 Influenza Immunization Completed , 01/16/2024, 02/07/2023, Additional history exists Human Papillomavirus (HPV) Immunization Aged Out No longer eligible based on patient's age to complete this topic Meningococcal Immunization (ACWY) Aged Out No longer eligible based on patient's age to complete this topic Rotavirus Immunization Aged Out No lo nger eligible based on patient's age to complete this topic Procedures Procedure Name Priority Date/Time Associated Diagnosis Comments COMPLETE BLOOD COUNT (CBC) WITH DIFF Routine 03/03/2025 11:50 AM HYPERION ESSBASE DEVELOPER Anemia, unspecified type LACTATE DEHYDROGENASE (LD) Routine 03/03/2025 11:50 AM HYPERION ESSBASE DEVELOPER Anemia, unspecified type FERRITIN Routine 03/03/2025 11:50 AM HYPERION ESSBASE DEVELOPER Anemia, unspecified type IRON W/ IRON BINDING CAPACITY OH Routine 03/03/2025 11:50 AM HYPERION ESSBASE DEVELOPER Anemia, unspecified type RETICULOCYTE COUNT (RETIC) Routine 03/03/2025 11:50 AM HYPERION ESSBASE DEVELOPER Anemia, unspecified type FOLIC ACID (FOLATE) Routine 03/03/2025 1 1:50 AM HYPERION ESSBASE DEVELOPER Anemia, unspecified type VITAMIN B12 Routine 03/03/2025 11:50 AM HYPERION ESSBASE DEVELOPER Anemia, unspecified type HAPTOGLOBIN Routine 03/03/2025 11:50 AM HYPERION ESSBASE DEVELOPER Anemia, unspecified type ERYTHROPOIETIN (EPO) OH Routine 03/03/20 25 11:50 AM HYPERION ESSBASE DEVELOPER Anemia, unspecified type ELECTROPHORESIS W/ TOTAL PROTEIN SERUM Routine 03/03/2025 11:50 AM HYPERION ESSBASE DEVELOPER Anemia, unspecified type IMMUNOFIXATION, SERUM OH Routine 03/03/2025 11:50 AM HYPERION ESSBASE DEVELOPER Anemia, unspecified type SERUM FREE LIGHT CHAINS, [place] Routine 03/03/2025 11:50 AM HYPERION ESSBASE DEVELOPER Anemia, unspecified type IMMUNOGLOBULIN IGA, IGG & IGM QUANT Routine 03/03/2025 11:50 AM HYPERION ESSBASE DEVELOPER Anemia, unspecified type from Last 3 Months Results * (ABNORMAL) SERUM FREE LIGHT CHAINS, [place] (03/03/2025 11:50 AM HYPERION ESSBASE DEVELOPER) FREE KAPPA LT CHAINS 243.5(H) 2.9 - 20.7 mg/L [facility] FREE LAMBDA LT CHAINS 230.8(H) 4.2 - 27.6 mg/L [facility] KAPPA/LAMBDA RATIO 1.06 0.22 - 1.74 [facility] Blood 03/03/2025 11:5 0 AM HYPERION ESSBASE DEVELOPER Narrative [facility] - 03/05/2025 1:18 PM HYPERION ESSBASE DEVELOPER Release to patient->Immediate us Imani Saldana MD LAB SEND OUTS Final Result [facility] [address] [place] [address], * (ABNORMAL) ERYTHROPOIETIN (EPO) [place] (03/03/2025 11:50 AM HYPERION ESSBASE DEVELOPER) Erythropoietin 56.4(H) 2.6 - 18.5 mIU/mL [facility] 03/03/2025 11:5 0 AM HYPERION ESSBASE DEVELOPER Narrative [facility] - 03/07/2025 1:41 PM HYPERION ESSBASE DEVELOPER Release to patient->Immediate Imani Saldana MD LAB SEND OUTS Final Result Performing Organization Address [facility] Co de Phone Number [facility] [address] [place] [address], [place] [phone] * (ABNORMAL) IRON W/ IRON BINDING CAPACITY [place] (03/03/2025 11:50 AM HYPERION ESSBASE DEVELOPER) IRON 43(L) 50 - 212 ug/dL [facility] UIBC 164 155 - 355 ug/dL [facility] TIBC 207(L) 261 - 478 ug/dl [facility] % Saturation 21 20 - 50 % [facility] 03/03/2025 11:5 0 AM HYPERION ESSBASE DEVELOPER Narrative [facility] - 03/04/2025 2:45 PM HYPERION ESSBASE DEVELOPER Release to patient->Immediate us Imani Saldana MD LAB SEND OUTS Final Result Performing Organization Address [facility] Co de Phone Number [facility] PORT[facility]EL[facility] [place] [address] [place] [address], [place] [phone] * IMMUNOFIXATION, SERUM [place] (03/03/2025 11:50 AM HYPERION ESSBASE DEVELOPER) IMMUNOFIXATION RESULT, SERUM COMMENT [facility] Comment:NO MONOCLONALITY DET ECTED. 03/03/2025 11:5 0 AM HYPERION ESSBASE DEVELOPER [facility] - 03/06/2025 1:09 PM HYPERION ESSBASE DEVELOPER TESTING PERFORMED AT: [] [address], [place], [address], PHONE: [phone], EXPANDER MACHINE OPERATOR: MIGUEL RICKS, PHD Release to patient->Immediate us Imani Saldana MD LAB SEND OUTS Final Result Performing Organization Address [facility] Co de Phone Number [facility] [place] [address], [place] [phone] * VITAMIN B12 (03/03/2025 11:50 AM HYPERION ESSBASE DEVELOPER) Vitamin B12 442 180 - 914 pg/mL [facility] SAP PORTAL DEVELOPER[facility] Blood 03/03/2025 11:5 0 AM HYPERION ESSBASE DEVELOPER Narrative [facility] - 03/05/2025 1:12 PM HYPERION ESSBASE DEVELOPER Release to patient->Immediate us Imani Saldana MD CHEMISTRY ORDERABLES Final Resul t Performing Organization Address [facility] de Phone Number [facility] [place] [address], [place] [phone] * (ABNORMAL) RETICULOCYTE COUNT (RETIC) (03/03/2025 11:50 AM HYPERION ESSBASE DEVELOPER) Reticulocyte count 3.70(H) 0.50 - 1.70 % [facility] RET-He 30.40 28.20 - 36.60 pg [facility] Comment: RET-He is a direct assessment of incorporation of iron into erythrocyte hemoglobin. It provides an indirect measure of the iron available for new erythropoiesis over past 2-4 days. Blood 03/03/2025 11:5 0 AM HYPERION ESSBASE DEVELOPER [facility] - 03/04/2025 1:46 PM HYPERION ESSBASE DEVELOPER Release to patient->Immediate us Imani Saldana MD HEMATOLOGY ORDERABLES Final Resu lt Performing Organization Address City/[facility]/ZIP Co de Phone Number [facility] PORTAL [facility]EL[facility] [address] [place] [address], * (ABNORMAL) LACTATE DEHYDROGENASE (LD) (03/03/2025 11:50 AM HYPERION ESSBASE DEVELOPER) LDH 130(L) 140 - 271 U/L [facility] Blood 03/03/2025 11:5 0 AM HYPERION ESSBASE DEVELOPER [facility] - 03/04/2025 2:45 PM HYPERION ESSBASE DEVELOPER Release to patient->Immediate us Imani Saldana MD CHEMISTRY ORDERABLES Final Resul t Performing Organization Address City/[facility]/ZIP Co de Phone Number [facility] [place] [address] [place] [address], * (ABNORMAL) IMMUNOGLOBULIN IGA, IGG & IGM QUANT (03/03/2025 11:50 AM HYPERION ESSBASE DEVELOPER) IGG 1,001 635 - 1,741 mg/dL [facility] IGA 223 66 - 433 mg/dL [facility] SAP PORTAL [facility] IGM 37(L) 45 - 281 mg/dL [facility] Blood 03/03/2025 11:5 0 AM HYPERION ESSBASE DEVELOPER [facility] - 03/05/2025 1:18 PM HYPERION ESSBASE DEVELOPER Release to patient->Immediate us Imani Saldana MD CHEMISTRY ORDERABLES Final Resul t [facility] [place] [address] [place] [address], * HAPTOGLOBIN (03/03/2025 11:50 AM HYPERION ESSBASE DEVELOPER) HAPTO 144 44 - 215 mg/dL [facility] Blood 03/03/2025 11:5 0 AM HYPERION ESSBASE DEVELOPER [facility] - 03/05/2025 1:18 PM HYPERION ESSBASE DEVELOPER Release to patient->Immediate us Imani Saldana MD CHEMISTRY ORDERABLES Final Resul t Performing Organization Address City/[facility]/ZIP Co de Phone Number [facility] PORTAL [facility]EL[facility] [address] [place] [address], [place] [phone] * FOLIC ACID (FOLATE) (03/03/2025 11:50 AM HYPERION ESSBASE DEVELOPER) Folate 15.08 >=5.90 ng/mL [facility] Blood 03/03/2025 11:5 0 AM HYPERION ESSBASE DEVELOPER [facility] - 03/05/2025 1:12 PM HYPERION ESSBASE DEVELOPER Release to patient->Immediate IS THE PATIENT REQUIRED TO BE FASTING FOR 12 HOURS?->No us Imani Saldana MD CHEMISTRY ORDERABLES Final Resul t Performing Organization Address [facility] Co de Phone Number [facility] PORTAL DEVELOPER [facility] [address] [place] [address], [place] [phone] * (ABNORMAL) FERRITIN (03/03/2025 11:50 AM HYPERION ESSBASE DEVELOPER) Ferritin 676(H) 11 - 307 ng/mL [facility] Blood 03/03/2025 11:5 0 AM HYPERION ESSBASE DEVELOPER [facility] - 03/05/2025 1:12 PM HYPERION ESSBASE DEVELOPER Release to patient->Immediate us Imani Saldana MD CHEMISTRY ORDERABLES Final Resul t Performing Organization Address City/[facility]/ZIP Co de Phone Number [facility] PORTAL [facility]ELOPER [facility] [address] [place] [address], [place] [phone] * ELECTROPHORESIS W/ TOTAL PROTEIN SERUM (03/03/2025 11:50 AM HYPERION ESSBASE DEVELOPER) PROTEIN, TOTAL, SERUM 6.0 6.0 - 8.5 G/DL [facility] ALBUMIN 3.4 2.9 - 4.4 G/DL [facility] [id number] 0.3 0.0 - 0.4 G/DL [facility] [id number] 0.7 0.4 - 1.0 G/DL [facility] BETA GLOBULIN 0.7 0.7 - 1.3 G/DL [facility] GAMMA GLOBULIN 0.9 0.4 - 1.8 G/DL [facility] M-SPIKE NOT OBSERVED NOT OBSERVED G/DL [facility] GLOBULIN, TOTAL 2.6 2.2 - 3.9 G/DL [facility] A/G RATIO 1.3 0.7 - 1.7 [facility] PLEASE NOTE: COMMENT [facility] Comment: PROTEIN ELECTROPHORESIS SCAN WILL FOLLOW VIA COMPUTER, MAIL, OR NATIONAL ACCOUNT MANAGER DELIVERY. PDF . [facility] Blood 03/03/2025 11:5 0 AM HYPERION ESSBASE DEVELOPER Narrative [facility] - 03/05/2025 3:09 PM HYPERION ESSBASE DEVELOPER TESTING PERFORMED AT: [] [facility], [address] [place] [address], [place], [address], PHONE: [phone], EXPANDER MACHINE OPERATOR: MIGUEL RICKS, PHD Release to patient->Immediate us Imani Saldana MD CHEMISTRY ORDERABLES Final Resul t [facility] [address] [place] [address], * (ABNORMAL) COMPLETE BLOOD COUNT (CBC) WITH DIFF (03/03/2025 11:50 AM HYPERION ESSBASE DEVELOPER) WBC 6.4 4.0 - 10.0 10*3/uL [facility] HGB 8.3(L) 11.2 - 15.7 g/dL [facility] HCT 25.9(L) 34.1 - 44.9 % [facility] PLT 182 163 - 369 10*3/uL [facility] MPV 11.8 9.4 - 12.4 fL [facility] RBC 2.51(L) 3.93 - 5.22 10*6/uL [facility] MCV 103(H) 79 - 95 fL [facility] SAP PORTAL DEVELOPER OF [facility] MCH 33.1(H) 25.6 - 32.2 pg [facility] MCHC 32.0(L) 32.2 - 36.5 g/dL [facility] RDW 17.0(H) 11.6 - 14.4 % [facility] Absolute Neutrophil Count 5,345 cells/uL [facility] Absolute Seg Count 5,345 1,440 - 6,600 cells/uL [facility] Absolute Lymph Count 451(L) 760 - 4,000 cells/uL [facility] Absolute Cooke Count 386 160 - 1,200 cells/uL [facility] Absolute Eos Count 258 0 - 300 cells/uL [facility] Segmented Neutrophils 83(H) 36 - 66 % [facility] Lymphocytes 7(L) 19 - 40 % [facility] Monocytes 6 4 - 12 % [facility] Eosinophils 4(H) 0 - 3 % [facility] WBC Estimate Normal [facility] Platelet Estimate Normal [facility] RBC Morphology Abnormal [facility] Macrocytosis 1+ [facility] Blood 03/03/2025 11:5 0 AM HYPERION ESSBASE DEVELOPER Narrative [facility] - 03/04/2025 3:07 PM HYPERION ESSBASE DEVELOPER Release to patient->Immediate us Imani Saldana MD HEMATOLOGY ORDERABLES Final Resu lt [facility] [place] [address], from Last 3 Months Insurance MEDICARE C [facility] Care Teams Quality Assurance Auditor Relationship Specialty Start Date End Date Coretta Sahu DO [address] [place] [address] PCP - General Family Medicine 02/21/25 Imani Saldana MD [address] [facility] [place] [address] [address] Consulting Physician Oncology 02/21/25 Coretta Sahu DO [address] [place] [address] Referring Provider Family Medicine 02/21/25
--- OUTSIDE RECORDS SUMMARY | 2025-03-11 09:35 | XMS_ITS | Clinical Summary ---
Author Organization [facility] Address [address] [place] [id number] Phone Care Team Providers Care Mixing And Dispensing Supervisor Name Role Phone Coretta Sahu DO Primary Care Provider [phone] Allergies Active Allergy Reactions Criticality Noted Date Comments Diltiazem Other (see comments) Low 06/23/2017 Tachycardia Metoprolol Palpitations Low 06/23/2017 Tachycardia Rosuvastatin Headache,Itching Low 01/10/2019 Also elevated glucose levels Medications amLODIPine (NORVASC) 10 MG tablet Take 10 mg by mouth daily 0 Active Blood Glucose Monitoring Suppl (LivevolStyle Morse Lite) w/Device kit USE TO TEST BLOOD SUGAR 3 TIMES PER DAY 8 Active chlorthalidone (HYGROTON) 25 MG tablet Take 25 mg by mouth daily 9 Active fluticasone (FLONASE) 50 MCG/ACT nasal spray 1 Active OneTouch Ultra test strip USE DIRECTED 3 TIMES A DAY 1 Active Lantus SoloStar 100 UNIT/ML injection INJECT 40 UNITS EVERY DAY 1 Active HumaLOG KWIKPEN 200 UNIT/ML solution pen-injector injection INJECT 40 UNITS 3 TIMES A DAY 1 Active TechLite Pen [place] 32G X 4 MM misc USE DIRECTED 5 TIMES PER DAY 1 Active insulin syringe-needle U-100 30G X 1/2 0.5 ML misc BD Insulin Syringe Ultra-Fine 1/2 mL 30 gauge x 1/2 miscellaneous syringeuse as [id number] Active Lancets (freestyle) lancets USE TO TEST BLOOD SUGAR 3 TIMES PER DAY 8 Active multivitamin (THERAGRAN) tablet Take 1 tablet by mouth daily Active Elastic Bandages & Supports (Neoprene Elbow Support) misc Compression StockingsKnee high. Medium strength. Wear as directed. Dx: Peripheral edema [id number], TracyActive 7 Active cholecalcifero l (VITAMIN D-3) 25 MCG (1000 UT) tablet Take 1,000 Units by mouth daily Active carvedilol (COREG) 12.5 MG tablet Take 1 tablet by mouth 2 (two) times a day 1 Active busPIRone (BUSPAR) 5 MG tablet Take 5 mg by mouth 3 times daily as needed 8 Active levothyroxine (SYNTHROID) 75 MCG tablet 1 Active olmesartan (BENICAR) 40 MG tablet 1 Active Livalo 1 MG tablet 1 Active albuterol HFA (PROVENTIL HFA) 108 (90 Base) MCG/ACT inhaler Inhale 2 puffs 2 Active azithromycin (ZITHROMAX) 250 MG tablet TAKE 2 TABLETS BY MOUTH TODAY, THEN TAKE 1 TABLET DAILY FOR 4 DAYS 2 Active predniSONE (DELTASONE) 10 MG tablet PLEASE SEE ATTACHED FOR DETAILED DIRECTIONS 2 Active Active Problems Problem Noted Date Diagnosed Date Hyperglycemia due to type 1 diabetes mellitus Polyneuropathy due to type 1 diabetes mellitus 0 06/04/2021 Stage 3a chronic kidney disease 06/04/2021 Allergic rhinitis 03/26/2021 Allergic rhinitis due to pollen 03/26/2021 Disorder of kidney 01/21/2021 Macular edema due to diabetes mellitus 1 Palpitations 08/08/2017 Proteinuria 06/27/2017 Asthma 06/06/2017 Left ventricular hypertrophy 06/06/2017 Overview (01/21/2021): Date Onset: 06/06/2017 Abnormal finding in urine 11/17/2016 Overview (01/21/2021): Date Onset: 11/17/2016 Osteopenia 11/17/2016 Overview (01/21/2021): Date Onset: 11/17/2016 Vitamin D deficiency 11/17/2016 Overview (01/21/2021): Date Onset: 11/17/2016 Mitral valve regurgitation 11/15/2016 Overview (01/21/2021): per echo Edema 08/19/2016 Overview (01/21/2021): Date Onset: 08/19/2016 Neuropathy 08/19/2016 Overview (01/21/2021): Date Onset: 08/19/2016 Cracked tooth 12/24/2015 Overview (01/21/2021): Date Onset: 12/24/2015 Dental caries 12/24/2015 Overview (01/21/2021): Date Onset: 12/24/2015 Facial pain 12/24/2015 Overview (01/21/2021): Date Onset: 12/24/2015 Presence of intrauterine contraceptive device Overview (01/21/2021): Date Onset: 05/22/2015 Edema of foot 04/01/2014 Overview (01/21/2021): Note: controlled Date Onset: 04/01/2014 Apocrine metaplasia of breast 10/17/2013 Overview (01/21/2021): Date Onset: 10/17/2013 Hypertensive disorder 10/17/2013 Overview (01/21/2021): Date Onset: 10/17/2013 Peripheral edema 10/17/2013 Overview (01/21/2021): Date Onset: 11/07/2016 Date Onset: 11/17/2016 Date Onset: 10/17/2013 Polyneuropathy 10/17/2013 Overview (01/21/2021): Date Onset: 10/17/2013 Type 1 diabetes mellitus wit h stable proliferative diabetic retinopathy of bilateral eyes 10/17/2013 Overview (01/21/2021): Proliferative, stable per Dr. 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 Fuentes Proliferative, stable per Dr. Fuentes Anxiety disorder 05/24/2012 Hyperlipidemia 05/24/2012 Obesity 05/24/2012 Chronic renal insufficiency 02/09/2012 Overview (01/21/2021): Date Onset: 11/17/2016 Note: Dr. Monge Date Onset: 2009 Goiter 02/09/2012 Overview (01/21/2021): Date Onset: Hirsutism 02/09/2012 Retinopathy due to diabetes mellitus 02/09/2012 Overview (01/21/2021): Note: Proliferative-Stable per Dr. Fuentes Date Onset: 2001 Tobacco user 02/09/2012 Type 1 diabetes mellitus 02/09/2012 Overview (01/21/2021): Date Onset: 08/19/2016 Date Onset: 11/07/2016 Note: insulin started at same time Date Onset: age [age] Right foot painful, 1st and 2nd metatarsal heel Anemia 05/23/2011 Overview (01/21/2021): Date Onset: 11/17/2016 Date Onset: 05/23/2011 Immunizations Immunization Administration Dates Next Due Hep B, Unspecified 09/30/2008,08/26/2008 Hepatitis B 09/30/2008,08/26/2008 Influenza, Unspecified 01/15/2020,2018,04/09/2018,01/29/2018,0 05/04/2017,03/30/2016,02/11/2014 MMR 01/25/1991 MMRV 01/25/1991 Moderna Sars-cov-2 Vaccination 05/20/2020 TD Preservative Free 01/25/1991 Td 01/25/1991 Tdap 05/24/2012 Family History Medical History Relation Comments Diabetes mellitus Brother End stage renal disease Brother Diabetes mellitus Mother Relation Status Comments Brother Mother Social History Tobacco Use Types Packs/Day Years Used Date Smoking Tobacco: Every Day Cigarettes 0.3 33.9 Started: 1991 Smokeless Tobacco: Never Tobacco Cessation:Ready to Q uit: No; Counseling Given: Yes Alcohol Use Standard Drinks/Week Comments Yes 0 (1 standard drink = 0.6 oz pur e alcohol) rare use Comments Unknown Sex and Gender Information Value Date Recorded Sex Assigned at Not on file Legal Sex Female 2:34 PM MDT Gender Identity Not on file Sexual Orientation Not on file Last Filed Vital Signs Vital Sign Reading Time Taken Comments Blood Pressure 155/88 06/07/2021 1:57 PM SAND SLINGER Pulse - - Temperature 35.7 C (96.2 F) 06/07/2021 1:57 PM SAND SLINGER Respiratory Rate 18 06/07/2021 1:57 PM SAND SLINGER Oxygen Saturation - - Inhaled Oxygen Concentration - - Weight 100 kg (221 lb) 06/07/2021 1:57 PM SAND SLINGER Height 165.1 cm (5' 5) 06/07/2021 1:57 PM SAND SLINGER Body Mass Index 36.78 06/07/2021 1:57 PM SAND SLINGER Plan of Treatment Health Maintenance Due Date Last Done Comments COVID-19 Vaccine (2024- 6 season) 2024 05/20/2020 Influenza Vaccine (#1) 2024 , 03/19/2019, 04/09/2018, Additional history exists Insurance [employer] MEDICARE [employer] Care Teams Mixing And Dispensing Supervisor Relationship Specialty Start Date End Date Coretta Sahu DO [address] [place] [address] [place], [place] [id number] PCP - General Family Medicine 01/11/21
--- OUTSIDE RECORDS SUMMARY | 2025-03-11 09:36 | XMS_ITS | Encounter Summary ---
Author Organization [facility] Healthcare Address [address] [place] [address] Care Team Providers Care Design Engineer Agricultural Equipment Name Role Phone Coretta Sahu DO Primary Care Provider [phone] Mirella Rasmussen RN Unavailable [phone] Louis Fenton MD Unavailable Mahendra Singletary MD Unavailable [phone] Juwan Hurtado MD Unavailable [phone] Encounter Details Date Type Department Care Team (Late st Contact Info) Description 09/29/[address] [facility] [address] [place] [address] Shiraz Kunz MD [facility] [address] [place], [place] [id number] Social History Tobacco Use Types Packs/Day Years Used Date Smoking Tobacco: Every Day Cigarettes 0.5 8 Passive Smoke Exposure: Current AUDIT-C Answer Date Recorded Q1: How often do you have a drink containing alc ohol? Monthly or less 09/28/2022 Q2: How many drinks containi ng alcohol do you have on a typical day when you are drinking? 1 or 2 09/28/2022 Q3: How often do you have si x or more drinks on one occasion? 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 Gender Identity Female 09/21/2022 10:17 AM CDT Sexual Orientation Straight 09/21/2022 10 :17 AM CDT documented as of this encounter Plan of Treatment Not on file documented as of this encounter Visit Diagnoses Not on filedocumented in this encounter Care Teams Design Engineer Agricultural Equipment Relationship Specialty Start Date End Date Coretta Sahu DO [address] [place] [address] [place] [address] PCP - General Sports Medicine 03/31/22 Mirella Rasmussen, RN [address] [place] [address] Stiff Leg Derrick Operator 03/31/22 Louis Fenton MD [address] [place] [address] [place] [address] Nephrology 04/18/22 Mahendra Singletary MD [address] [address] Consulting Physician Cardiovascular Disease 12/21/23 Juwan Hurtado MD [facility] [address] [place] [address] Consulting Physician Cardiology 05/09/24 documented as of this encounter
--- OUTSIDE RECORDS SUMMARY | 2025-03-11 09:36 | XMS_ITS | Clinical Summary ---
Author Organization [facility] Address [address] [place] [id number] Care Team Providers Care Hse Coordinator Name Role Phone Coretta Sahu DO Primary Care Provider Mirella Rasmussen RN Unavailable [phone] Louis Fenton MD Unavailable [phone] Mahendra Singletary MD Unavailable [phone] Juwan Hurtado MD Unavailable [phone] Allergies Active Allergy Reactions Criticality Noted Date Comments Diltiazem Other (See comments),Unknown,Hives Medium 06/23/2017 Tachycardia Tachycardia Tachycardia Iodine Rash Medium 02/14/2024 Levothyroxine Headache Low 02/14/2024 Metoprolol Palpitations,Unknown ,Wilmer sea And Vomiting Low 06/23/2017 Tachycardia Tachycardia Povidone-Iodine Rash Medium 03/09/2023 Rosuvastatin Headache,Itching,Rash Medium 01/10/2019 Also elevated glucose levels Medications insulin syringe-needle U-100 0.5 mL 30 gauge x 1/2 syringe BD Insulin Syringe Ultra-Fine 1/2 mL 30 gauge x 1/2 miscellaneous syringeuse as [id number] Active fluticasone propionate (FLONASE) 50 mcg/actuation nasal spray Administer 2 sprays into each nostril daily as needed for allergies 1 Active insulin lispro (HumaLOG) 200 unit/mL (3 mL) pen for injection every 8 hours Per correction scale 1 Active levonorgestreL (MIRENA) IUD by intrauterine route Active albuterol HFA (Ventolin HFA) 90 mcg/actuation inhaler Inhale 2 puffs every 4 (four) hours as needed for wheezing or shortness of breath 8 g 2 Active carvediloL (COREG) 25 mg tablet TAKE ONE TABLET BY MOUTH TWICE DAILY @ 9AM & 5PM MUST ADMINISTER WITH A MEAL/FOOD 3 Active TRESIBA 100 unit/mL (3 mL) pen for injection Inject 0.15 mL (15 Units total) under the skin daily Active calcitRIOL (ROCALTROL) 0.25 mcg capsule Take 1 capsule (0.25 mcg total) by mouth 3 (three) times a week Active calcium carbonate (TUMS) 500 mg (200 mg elemental calcium) chewable tablet Take 1 tablet/chew tab (500 mg total) by mouth 3 (three) times a day as needed for heartburn Active loperamide (IMODIUM) 2 mg capsule TAKE 1 CAPSULE BY MOUTH 4 TIMES DAILY NEEDED FOR DIARRHEA. 3 Active isosorbide mononitrate ER (IMDUR) 30 mg 24 hr tablet Take 1 tablet (30 mg total) by mouth daily 5 Active azelastine (OPTIVAR) 0.05 % ophthalmic solution 1 drop 2 (two) times a day Active traZODone (DESYREL) 100 mg tablet Take 1 tablet (100 mg total) by mouth nightly 5 Active NIFEdipine XL 90 mg 24 hr tablet Take 1 tablet (90 mg total) by mouth daily 5 Active nitroglycerin (NITROSTAT) 0.[address] 1 tablet (0.4 mg total) under the tongue every 5 (five) minutes as needed 4 Active hydrOXYzine (ATARAX) 25 mg tablet TAKE 1 TABLET BY MOUTH NIGHTLY NEEDED FOR ITCHING 4 Active gabapentin (NEURONTIN) 100 mg capsule Take 1 capsule (100 mg total) by mouth 2 (two) times a day 5 Active Edwige-Jacques 0.8 mg tablet Take by mouth daily 5 Active fluticasone furoate-vilante roL (BREO ELLIPTA) 100-25 mcg/dose diskus inhaler Inhale 1 puff daily 4 Active calcium acetate,phospha t bind, (PHOSLO) 667 mg tablet every 8 hours Active bumetanide (BUMEX) 2 mg tablet TAKE 1 TABLET BY MOUTH DAILY ON NON-DIALYSIS DAYS (TUES, THURS, SAT, SUN) 5 Active hydrALAZINE (APRESOLINE) 25 mg tablet TAKE 2 TABLETS BY MOUTH 3 TIMES A DAY . TAKE 1 TAB IN MORNING ON DIALYSIS DAYS 5 Active ELEMENTARY READING SPECIALIST Thyroid 120 mg tablet TAKE 1 TABLET BY MOUTH EVERY DAY ON EMPTY STOMACH FOR 30 DAYS 5 Active OneTouch Delica Plus Lancet 33 gauge misc USE TO CHECK BLOOD GLUCOSE FOUR TIMES DAILY. 5 Active PARoxetine (PAXIL) 10 mg tablet Take 1 tablet (10 mg total) by mouth ambulance operations supervisor before breakfast Active Gvoke HypoPen 2-Pack 1 mg/0.2 mL auto-injector INJECT ENTIRE CONTENTS SUBCUTANEOUS FOR HYPO EVENT 90 DAYS Active Active Problems Problem Noted Date Diagnosed Date Pulmonary hypertension 10/08/2024 ESRD (end stage renal disease) on dialysis 03/09 Assessment & Plan (10/22/2024 12:48 PM CDT): Dialyzing without any issues. Follow-up 3 months AV duplex Assessment & Plan (05/28/2024 9:03 AM SUPERVISOR [employer]ATING [employer] POINT ASSEMBLY): Impression: Patient is being dialyzed through a left brachial axillary AV graft without any issues. Audible bruit and palpable thrill noted on exam. Av duplex reveals patent stents and patent AV graft. Plan: Continue utilizing AV graft for dialysis as per Nephrology. -Patient follow-up in 3 months for re-evaluation with repeat AV duplex scan. Encouraged patient make a sooner appointment if there is any complications during dialysis. Assessment & Plan (08/29/2023 9:32 AM CDT): Impression: Patient is being dialyzed through a left brachial axillary AV graft without complications. Audible bruit and palpable thrill noted on exam. Patent stent and patent graft is noted on AV duplex. Plan: Continue utilizing AV graft for dialysis as per Nephrology. -patient to follow-up in 3 months for re-evaluation with repeat AV duplex. Encouraged patient make a sooner appointment if there is any complications during dialysis. Assessment & Plan (05/30/2023 10:39 AM SUPERVISOR PLATING AND POINT ASSEMBLY): Impression: Patient underwent a left axillary vein stent placement for treatment of outflow stenosis. She is undergoing dialysis utilizing a left brachial axillary AV graft without complications. Audible bruit palpable thrill noted on exam. Suture to the left upper extremity is intact with no concern for infection. Av duplex reveals patent stent and a patent graft. Plan: Suture removed at bedside. -continue utilizing left brachial axillary AV graft for dialysis as per Nephrology. -follow-up in 3 months for re-evaluation with repeat AV duplex. Assessment & Plan (03/10/2023 11:29 AM SUPERVISOR PLATING AND POINT ASSEMBLY): Impression: Patient is being dialyzed through a left brachial axillary AV graft. She is reporting prolong bleeding after decannulation. Audible bruit and palpable thrill noted on exam. AV scan reveals elevated velocity proximal to the venous anastomosis. Plan: Recommend fistulogram with possible intervention. Risks of the procedure communicate with the patient to include infection, bleeding, injury, further surgery, limb loss and . Patient voices understanding of these risks and wishes to proceed. -Patient to continue utilizing AV graft for dialysis as per nephrology until scheduled procedure. Chronic kidney disease, stage 3a 06/04/2021 Hyperglycemia due to type 1 diabetes mellitus Assessment & Plan (03/10/2023 9:25 AM SUPERVISOR [employer]ATING [employer] POINT ASSEMBLY): Impression: Chronic with good glucose control. Plan: Continue insulin Polyneuropathy due to type 1 diabetes mellitus 0 06/04/2021 Non-seasonal allergic rhinitis 03/26/2021 Seasonal allergic rhinitis due to pollen 021 Diabetic macular edema 01/21/2021 Disorder of kidney 01/21/2021 Palpitations 08/08/2017 Proteinuria 06/27/2017 Asthma 06/06/2017 Left ventricular hypertrophy 06/06/2017 Overview (06/04/2021): Date Onset: 06/06/2017 Date Onset: 06/06/2017 Abnormal finding in urine 11/17/2016 Overview (06/04/2021): Date Onset: 11/17/2016 Date Onset: 11/17/2016 Osteopenia 11/17/2016 Overview (06/04/2021): Date Onset: 11/17/2016 Date Onset: 11/17/2016 Vitamin D deficiency 11/17/2016 Overview (06/04/2021): Date Onset: 11/17/2016 Date Onset: 11/17/2016 Mitral valve regurgitation 11/15/2016 Overview (06/04/2021): per echo per echo per echo Edema 08/19/2016 Overview (06/04/2021): Date Onset: 08/19/2016 Neuropathy 08/19/2016 Overview (06/04/2021): Date Onset: 08/19/2016 Date Onset: 08/19/2016 Cracked tooth 12/24/2015 Overview (06/04/2021): Date Onset: 12/24/2015 Date Onset: 12/24/2015 Facial pain 12/24/2015 Overview (06/04/2021): Date Onset: 12/24/2015 Date Onset: 12/24/2015 Presence of intrauterine contraceptive device Overview (06/04/2021): Date Onset: 05/22/2015 Date Onset: 05/22/2015 Date Onset: 05/22/2015 Edema of foot 04/01/2014 Overview (06/04/2021): Note: controlled Date Onset: 04/01/2014 Note: controlled Date Onset: 04/01/2014 Apocrine metaplasia of breast 10/17/2013 Overview (06/04/2021): Date Onset: 10/17/2013 Date Onset: 10/17/2013 Essential hypertension 10/17/2013 Overview (06/04/2021): Date Onset: 10/17/2013 Date Onset: 10/17/2013 Date Onset: 10/17/2013 Assessment & Plan (10/22/2024 12:45 PM CDT): Continue nifedipine, isosorbide, hydralazine, carvedilol Assessment & Plan (05/28/2024 9:01 AM SUPERVISOR PLATING AND POINT ASSEMBLY): Impression: Chronic and stable. Plan: Continue carvedilol, hydralazine, isosorbide, nifedipine Assessment & Plan (08/29/2023 9:31 AM CDT): Impression: Chronic and stable. Plan: Continue carvedilol and nifedipine. Assessment & Plan (05/30/2023 10:40 AM SUPERVISOR PLATING AND POINT ASSEMBLY): Impression: Chronic and stable. Plan: Continue carvedilol, nifedipine Assessment & Plan (03/10/2023 11:26 AM SUPERVISOR PLATING [employer] POINT ASSEMBLY): Impression: Chronic blood pressure elevated this office visit. Patient remains asymptomatic. Plan: Recommend patient to monitor blood pressures at home and notify primary care provider for elevated blood pressure for further management. 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 Fuentes Proliferative, stable per Dr. Fuentes Anxiety disorder 05/24/2012 Mixed hyperlipidemia 05/24/2012 Assessment & Plan (10/22/2024 12:47 PM CDT): Continue as per PCP Obesity 05/24/2012 Chronic renal insufficiency 02/09/2012 Overview (06/04/2021): Date Onset: 11/17/2016 Note: Dr. Monge Date Onset: 2008 Date Onset: 11/17/2016 Note: Dr. Monge Date Onset: 2008 Date Onset: 11/17/2016 Note: Dr. Monge Date Onset: 2008 Diabetic retinopathy 02/09/2012 Overview (06/04/2021): Note: Proliferative-Stable per Dr. Fuentes Date Onset: 2001 Note: Proliferative-Stable per Dr. Fuentes Date Onset: 2001 Note: Proliferative-Stable per Dr. Fuentes Date Onset: 2001 Goiter 02/09/2012 Overview (06/04/2021): Date Onset: Date Onset: Hirsutism 02/09/2012 Type 1 diabetes mellitus wit h chronic kidney disease on chronic dialysis 02/09/2012 Overview (06/04/2021): Date Onset: 08/19/2016 Date Onset: 11/07/2016 Note: insulin started at same time Date Onset: age 11 or 12 Right foot painful, 1st and 2nd metatarsal heel Proliferative, stable per Dr. Fuentes Date Onset: 08/19/2016 Date Onset: 11/07/2016 Note: insulin started at same time Date Onset: age 11 or 12 Right foot painful, 1st and 2nd metatarsal heel Note: insulin started at same time Date Onset: age 11 or 12 Right foot painful, 1st and 2nd metatarsal heel Assessment & Plan (10/22/2024 12:47 PM CDT): Continue insulin Assessment & Plan (05/28/2024 9:01 AM SUPERVISOR PLATING AND POINT ASSEMBLY): Impression: Chronic with good glucose control. Plan: Continue insulin and Tresiba Assessment & Plan (08/29/2023 9:32 AM CDT): Impression: Chronic with good glucose control. Plan: Continue insulin Assessment & Plan (05/30/2023 10:40 AM SUPERVISOR PLATING AND POINT ASSEMBLY): Impression: Chronic with good glucose control. Plan: Continue insulin. Assessment & Plan (09/27/2022 2:45 PM CDT): Continue diabetic diet and insulin as per PCP. Anemia 05/23/2011 Overview (06/04/2021): Date Onset: 11/17/2016 Date Onset: 05/23/2011 Date Onset: 11/17/2016 Date Onset: 05/23/2011 Resolved Problems Problem Noted Date Diagnosed Date Resolved Date ESRD (end stage renal disease) 10/29/2023 05/28/2024 Assessment & Plan (01/02/2024 12:42 PM CDT): Asymptomatic venous outflow stenosis. Will proceed with left arm AV fistulogram with possible intervention. Risks of the procedure communicated patient full understanding. She wished to proceed End stage renal disease 09/27/2022 11 Assessment & Plan (10/25/2022 10:05 AM CDT): Patient is following up 2 weeks status post brachial axillary graft creation on 10/11/2022. She is been dialyzing through a right IJ Perma catheter without any issues. Left upper extremity graft has a good bruit and thrill on exam. Incisions are healing well. Dermabond is intact. Plan: Patient can start to utilize the graft for dialysis. Call within 2 weeks if she is been dialyzing without any issues and can have the PermCath removed. Otherwise follow-up in 1 month for a left upper extremity AV duplex. Assessment & Plan (09/27/2022 2:46 PM CDT): Patient seen today for permanent access creation for hemodialysis. She is previously been undergoing peritoneal dialysis which she is not tolerating. She is undergoing testing for kidney transplant list starting in October of this year. Vein mapping done today shows her veins are not sizable for a fistula creation. Discussed the procedure for graft creation all of its potential risks. Answered all questions at this time. She is agreeable wishes to proceed. She is right arm dominant. To be scheduled for a left upper extremity graft creation with Dr. Kunz. Discussed the patient with Dr. Toya Kunz. Encounters Date Type Department Care Team Description 02/19/2025 10:00 AM CDT - 02/19/2025 11:59 PM CDT Hospital Encounter [address] [address] ESRD (end stage renal disease) Discharge Disposition: Discharge to home or self care 02/11/2025 9:19 AM CDT - 02/11/2025 11:59 PM CDT Hospital Encounter [facility] [address] [facility] [address] [place] [id number] ESRD (end stage renal disease) on dialysis (HCC) (Primary Dx); Other specified complication of vascular prosthetic devices, implants and grafts, initial encounter; Essential hypertension Discharge Disposition: Discharge to home or self care 02/11/2025 9:19 AM CDT - 02/11/2025 11:59 PM CDT Hospital Encounter [facility] [place] [address] [place] [id number] ESRD (end stage renal disease) on dialysis (HCC); Other specified complication of vascular prosthetic devices, implants and grafts, initial encounter Discharge Disposition: Discharge to home or self care 01/22/2025 10:00 AM CDT - 01/22/2025 11:59 PM CDT Hospital Encounter [address] [address] ESRD (end stage renal disease) Discharge Disposition: Discharge to home or self care 01/06/2025 Telephone [facility] [address] [facility] [address] [place] [address] [place] [address] Faiza Samaniego, RN 01/06/2025 Orders Only [facility] [address] [facility] [address] [place] [address] [place] [address] Faiza Samaniego, RN 12/13/2024 Documentation [facility] [address] [facility] [address] [place] [address] [place] [address] Caesar Rivera MD 12/11/2024 10:00 AM CDT - 12/11/2024 11:59 PM CDT Hospital Encounter [facility] [address] [place] [address] ESRD (end stage renal disease) Discharge Disposition: Discharge to home or self care 12/11/2024 [facility] [address] [facility] [address] [place] [address] [place] [address] Faiza Samaniego RN Pulmonary hypertension (HCC) (Primary Dx) from Last 3 Months Immunizations Immunization Administration Dates Next Due Hep B Vaccine 09/30/2008,08/26/2008 Hep B, Unspecified 09/30/2008,08/26/2008 Influenza, Quadrivalent, Rec ombinant, Egg Free, Preservative Free, Intramuscular 02/08/2022 Influenza, Quadrivalent, Spl it, Preservative Free, Intramuscular 01/15/2020,03/19/2019,04/09/2018,05/04 Influenza, Trivalent, IM (MDV) 03/30/2016 Influenza, Unspecified 02/08/2022,2019,03/19/2019,04/09,01/29/2018,05/04/2017,03/30/2016 ,02/11/2014 MMR 01/25/1991 MMRV 01/25/1991 Pneumococcal Conjugate Pcv20 11/08/2022 Pneumococcal Polysaccharide PPV23 02/08/2022 TD Preservative Free 01/25/1991 Td, Adsorbed, Preservative F ree, Adult Use, Lf Unspecified 01/25/1991 Td, adsorbed 01/25/1991 Surgical History Surgery Date Site/Laterality Comments VAGINAL DELIVERY two PERITONEAL CATHETER INSERTIO N TUNNELED 04/19/2022 (removed 10/04/22) - Dr. Bhardwaj CENTRAL VENOUS CATHETER TUNNELED INSERTION DOUBLE LUMEN 11/11/2021 Right RIJ permacath - Dr. Soto (removed 11/24/22 - Dr. Barron Kunz) DIALYSIS FISTULA CREATION 10/11/2022 Left LUE brachial axillary AVG creation - Dr. Evan Kunz AV FISTULA REPAIR 05/11/2023 Left LUE AVG - stent axillary vein - Dr. Evan Kunz AV FISTULA REPAIR 01/18/2024 Left LUE AVG - fistulogram no intervention- Dr. Evan Kunz Medical History Medical History Date Comments Hypertension Hypothyroidism Obesity Chronic kidney disease dialysis x 1 year, port right upper chest Type 2 diabetes mellitus Anxiety Asthma Family History Medical History Relation Name Comments Depression Mother Hypertension Mother Relation Name Status Comments Mother Social History Tobacco Use Types Packs/Day Years Used Date Smoking Tobacco: Every Day Cigarettes 0.5 8 Passive Smoke Exposure: Current Tobacco Cessation:Ready to Q uit: Yes; Counseling Given: Yes AUDIT-C Answer Date Recorded Q1: How often do you have a drink containing alc ohol? Monthly or less 01/18/2024 Q2: How many drinks containi ng alcohol do you have on a typical day when you are drinking? 1 or 2 01/18/2024 Q3: How often do you have si x or more drinks on one occasion? Never 01/18/2024 Personal Safety Answer Date Recorded Have you ever been in or are you currently in a harmful physical or emotional relationship or is someone making you feel afraid or unsafe? Denies 01/18/2024 Comments Unknown Sex and Gender Information Value Date Recorded Sex Assigned at Not on file Legal Sex Female 4:44 PM SUPERVIS[employer]ATING [employer]SEMBL[employer] Gender Identity Female 09/21/2022 10:17 AM CDT Sexual Orientation Straight 09/21/2022 10 :17 AM CDT Last Filed Vital Signs Vital Sign Reading Time Taken Comments Blood Pressure 121/43 02/11/2025 9:58 AM CDT Asy mptomatic Pulse 68 02/11/2025 9:58 AM CDT Temperature 36.5 C (97.7 F) 02/11/2025 9:58 AM CDT Respiratory Rate 18 10/08/2024 3:10 PM CDT Oxygen Saturation 100% 02/11/2025 9:58 AM CDT Inhaled Oxygen Concentration - - Weight 75.8 kg (167 lb) 10/22/2024 9:04 AM CDT Height 167.6 cm (5' 6) 10/22/2024 9:04 AM CDT Body Mass Index 26.95 10/22/2024 9:04 AM CDT Plan of Treatment Health Maintenance Due Date Last Done Comments Albumin Creatinine Ratio, Urine 1973 Cervical Cancer Screening 1973 Colon Cancer Screening-Colonoscopy 1973 Depression Screening 1973 Foot Exam 1973 Dilated Eye Exam 08/31/1983 Regular Well Visit/Exam 18-64 08/31/1991 Zoster Vaccine (1 of 2) 1992 Covid-19 Vaccine (3 - Modern a risk series) 07/15/2020 06/17/2020, 05/20/2020 Hemoglobin A1C 05/23/2024 11/21/2023, 10/01, 11/10/2022 Influenza Vaccine (#1) 2024 , 02/07/2023, 02/08/2022, Additional history exists eGFR 01/17/2025 01/18/2024, 10/30, 10/29/2023, Additional history exists Breast Cancer Screening-Mammogram 02/14/2025 02/15/2024, 02/15/2024, 02/06/2023 Lipid Panel 11/14/2025 11/14/2024, 10/01, 11/10/2022, Additional history exists TSH Level 11/14/2025 11/14/2024, 07/30, 07/07/2024, Additional history exists DTaP/Tdap/Td Vaccine (3 - Td or Tdap) 11/17/2032 11/17/2022, 05/24/2012, 01/25/1991, Additional history exists Pneumococcal vaccine <65 Completed 11/08/2022, 01/29 Hepatitis B Screening Completed 11/21/2023 , 09/30/2008, 09/30/2008, Additional history exists Hepatitis C Screening Completed 11/21/2023 , 10/29/2023, 10/29/2023, Additional history exists Medical Devices Implanted Type Area Yarding And Folding Machine Operator Device Identifier Shelf Expiration Date Model / Serial / Lot [employer] 4-7mm 45cm Stretch Peripheral Standard Automatic Lathe Operator Graft Vascular [id number] - [id number] - [id number] Implanted:Qty: 1 on 10/11/2022 by Evan Kunz MD at [facility] Graft Left: Arm [employer] [id number] 08/10/2027 [id number] / [id number] / Bard Peripheral Vascular Covera 8mm 8fr 60mm 80cm Cover Helical Strut Thumbwheel [id number] - [id number] Implanted:Qty: 1 on 05/11/2023 by Evan Kunz MD at [facility] [employer] Peripheral Vascular 12/02/2024 [id number] / / [id number] Procedures Procedure Name Priority Date/Time Associated Diagnosis Comments HLA ANTIBODY SCREEN - SAB (CLASS I AND CLASS II) Routine 02/19/2025 10:00 AM CDT ESRD (end stage renal disease) HLA ANTIBODY SCREEN BY PRA OR SAB PER SCHEDULE (CLASS I AND CLASS II) Routine 02/19/2025 10:00 AM CDT ESRD (end stage renal disease) US HEMODIALYSIS ACCESS Schedule Routine, Read Routine (OP Routine) 02/11/2025 10:06 AM CDT ESRD (end stage renal disease) on dialysis (HCC) Other specified complication of vascular prosthetic devices, implants and grafts, initial encounter HLA ANTIBODY SCREEN BY PRA OR SAB PER SCHEDULE (CLASS I AND CLASS II) Routine 01/22/2025 10:00 AM CDT ESRD (end stage renal disease) HLA ANTIBODY SCREEN - SAB (CLASS I AND CLASS II) Routine 12/11/2024 10:00 AM CDT ESRD (end stage renal disease) HLA ANTIBODY SCREEN BY PRA OR SAB PER SCHEDULE (CLASS I AND CLASS II) Routine 12/11/2024 10:00 AM CDT ESRD (end stage renal disease) EGFR STAT 01/18/2024 8:20 AM CDT HEPATITIS C ANTIBODY Routine 11/21/2023 8:14 AM CDT ESRD (end stage renal disease) (HCC) HEMOGLOBIN A1C Routine 11/21/2023 8:14 AM CDT ESRD (end stage renal disease) (HCC) LIPID PANEL Routine 10/29/2023 3:10 PM CDT from Last 3 Months or Most Recently Relevant to Health Maintenance Results * HLA Antibody Screen by PRA or SAB per Schedule (Class I and Class II) (02/19/2025 10:00 AM CDT) Blood 02/19/2025 10:0 0 AM CDT Narrative HISTOTR[facility] - [employer]PER[employer]ATING [employer]SEM[employer] Sample received in lab. Single Antigen Antibody Screen ordered. us Nathalie Wheat MD LAB BLOOD ORDERABLE S Final Result HISTOTR[facility] * HLA Antibody Screen - SAB (Class I and Class II) (02/19/2025 10:00 AM CDT) Class I Treatment EDTA HISTOTR[facility] Class I Dilution 1:1 HISTOTRAC Class I Tested Date 02/21/2025 HISTOTRAC Class I Result Positive HISTOTRAC Class I CPRA 89 HISTOTRAC Class I Increased Risk B7, B27, B42, B48, B55, B60, B61, B67, B81, Bw6 HISTOTRAC Class I Moderate Risk B8, B13, B18, B35, B39, B41, B45, B47, B50, B54, B56, B62, B64, B65, B71, B72, B73, B75, B76, B78, B82; Cw10 HISTOTRAC Class I Low Risk A66; B46; Cw1, Cw8, Cw9, Cw10, Cw12, Cw14 HISTOTRAC Class I Reportable Comments Bw6 pattern present. HISTOTRAC Class II Treatment EDTA HISTOTRAC Class II Dilution 1:1 HISTOTRAC Class II Tested Date 02/21/2025 HISTOTRAC Class II Result Negative HISTOTRAC Class II CPRA 0 HISTOTRAC 02/19/2025 10:0 0 AM CDT 02/24/2025 10:42 AM CDT Narrative HISTOTRAC - 02/24/2025 10:42 AM CDT Single-antigen HLA antibody screen is performed on serum samples using a method developed and validated by the [facility] HLA laboratory based on an FDA-approved IVD kit (LABScreen Single-Antigen, [employer], [place], [place]). All patient serum samples are pretreated with EDTA before the screen to prevent complement interference. Additional serum treatments, such as adsorption and DTT treatment, may be performed as indicated. Interpretive comments: Low risk: MFI [id number]. Moderate risk: MFI [id number]. Increased risk: MFI >/= 5000. The presence of an antigen in two or more risk categories may indicate a mixed reactivity pattern among beads of multiple subtypes. Preformed donor-specific antibodies (DSA) with MFI above 2000 are predictive of positive cytotoxicity crossmatch (Hum Immunol 2010;71:268-73. Hum Immunol 2012;73:497- 604) and carry a higher risk of humoral rejection. For our solid-organ transplant programs, unacceptable antigens (UA) for transplant candidates are defined by MFI >/= 2000 with some exceptions. UA are listed at [facility] and used to generate calculated PRA (cPRA) rounded to the nearest integer. In the post-transplant setting, MFI values from donor-specific beads are listed in the DSA report to provide additional information. It is important to note that this test is approved as a qualitative test and the MFI values are not strictly linear. For platelet refractoriness: An empirical cutoff value of MFI >/= 2000 has been used in our center; a higher cutoff value such as 5000 may also be suitable for highly sensitized patients to prioritize the antigens to avoid. Testing performed at the [facility], [address] [place] [address], 5th floor, [place], [address]. [place] # [id number]. Jigna Hurst, Ph.D., Ux Ui Designer, HLA Laboratory Shashank Armas M.D., Ph.D., [facility], HLA Laboratory Angelita Farias, Ph.D., CLIA [facility], [facility] Current methodology and interpretive comments last revised on 05/26/2022. us Nathalie Wheat MD LAB BLOOD ORDERABLE S Final Result HISTOTRAC * US Hemodialysis Access (02/11/2025 10:06 AM CDT) Anatomical Region Laterality Modality Vascular N/A Ultrasound 02/11/2025 9:27 AM CDT Narrative 02/13/2025 9:59 AM CDT Hemodialysis Access Duplex Report Patient Name: MADI SUAREZ L : 1975 (49y 5m) Sex: F Study Date: 02/11/2025 09:27:27 AM Frit Burner: JUAN CARLIN Provider: EVAN KUNZ Provider: EVAN KUNZ PROCEDURES: Vascular Report: Color Duplex ultrasound with velocity measurements was performed of the left upper extremity access graft. A non-invasive vascular imaging study of the left upper extremity dialysis access and stent was performed using B-mode ultrasound, color flow, and spectral Doppler. INDICATIONS: Dialysis graft complication. HISTORY: S/P STENT LEFT AX V 05/11/2023 S/P LT BRACH-AX AVG 10/11/2022. COMPARISONS: The previous exam was completed on 10/22/2024. ACCESS GRAFT: Vessel Velocity Rt Mid Graft cm/sec Lt Location Lt Brach-Ax AVG Lt Sun'Aq Artery 296.00 cm/sec Lt Arterial Anast 756.00 cm/sec Lt Prx Graft 307.00 cm/sec Lt Mid Graft 266.00 cm/sec Lt Dst Graft 293.00 cm/sec Lt Venous Anast 179.00 cm/sec Lt Sun'Aq Vein Ax v 73.00 SCV 65 cm/sec Lt Mid Graft VF 554.00 mL/min STENT MEASUREMENTS: Left Velocity Location Distal AVG-Ax v Lt Stent Prx Sun'Aq PSV 279.00 cm/sec Lt Stent Prx PSV 324.00 cm/sec Lt Stent Mid PSV 136.00 cm/sec Lt Stent Dst PSV 121.00 cm/sec Lt Stent Dst Sun'Aq PSV 96.00 cm/sec FINDINGS: Study Quality: The study quality is adequate. Left: The arteriovenous graft is located in the left arm. The arteriovenous graft is patent. Stent: The stent is located in the distal arteriovenous graft and axillary vein. Patent upper extremity stent. Increased velocities at the proximal portion of the stent. CONCLUSIONS: 1. Patent left brachial artery to axillary vein graft. Stent in the axillary with evidence of InStent stenosis. Electronically Signed By: Evan Kunz MD 02/13/2025 8:38:30 AM CDT Procedure Note Evan Kunz MD - 02/13/2025 Hemodialysis Access Duplex Report Patient Name: MADI SUAREZ L : 1975 (49y 5m) Sex: F Study Date: 02/11/2025 09:27:27 AM Frit Burner: JUAN CARLIN Order Provider: EVAN KUNZ Ref Provider: EVAN KUNZ PROCEDURES: Vascular Report: Color Duplex ultrasound with velocity measurements wasperformed of the left upper extremity access graft. A non-invasive vascular imaging studyof the left upper extremity dialysis access and stent was performed using B-modeultrasound, color flow, and spectral Doppler. INDICATIONS: Dialysis graft complication. HISTORY: S/P STENT LEFT AX V 05/11/2023 S/P LT BRACH-AX AVG 10/11/2022. COMPARISONS: The previous exam was completed on 10/22/2024. ACCESS GRAFT: Vessel Velocity Rt Mid Graft cm/sec Lt Location Lt Brach-Ax AVG Lt Sun'Aq Artery 296.00 cm/sec Lt Arterial Anast 756.00 cm/sec Lt Prx Graft 307.00 cm/sec Lt Mid Graft 266.00 cm/sec Lt Dst Graft 293.00 cm/sec Lt Venous Anast 179.00 cm/sec Lt Sun'Aq Vein Ax v 73.00 SCV 65 cm/sec Lt Mid Graft VF 554.00 mL/min STENT MEASUREMENTS: Left Velocity Location Distal AVG-Ax v Lt Stent Prx Sun'Aq PSV 279.00 cm/sec Lt Stent Prx PSV 324.00 cm/sec Lt Stent Mid PSV 136.00 cm/sec Lt Stent Dst PSV 121.00 cm/sec Lt Stent Dst Sun'Aq PSV 96.00 cm/sec FINDINGS: Study Quality: The study quality is adequate. Left: The arteriovenous graft is located in the left arm. Thearteriovenous graft is patent. Stent: The stent is located in the distal arteriovenous graft and axillaryvein. Patent upper extremity stent. Increased velocities at the proximal portion of thestent. CONCLUSIONS: 1. Patent left brachial artery to axillary vein graft. Stent in theaxillary with evidence of InStent stenosis. Electronically Signed By: Evan Kunz MD 02/13/2025 8:38:30 AM CDT Evan Kunz MD [facility] US PROCEDURES Final Result * HLA Antibody Screen by PRA or SAB per Schedule (Class I and Class II) (01/22/2025 10:00 AM CDT) Blood 01/22/2025 10:0 0 AM CDT Narrative HISTOTRAC - SUPERVISOR PLATING AND POINT ASSEMBLY Sample received in lab and stored. No testing performed at this time. Nathalie Wheat MD LAB BLOOD ORDERABLE S Final Result HISTOTRAC * HLA Antibody Screen by PRA or SAB per Schedule (Class I and Class II) (12/11/2024 10:00 AM CDT) Blood 12/11/2024 10:0 0 AM CDT Narrative HISTOTRAC - SUPERVISOR PLATING AND POINT ASSEMBLY Sample received in lab. Single Antigen Antibody Screen ordered. Nathalie Wheat MD LAB BLOOD ORDERABLE S Final Result Performing Organization Address [facility] Co de Phone Number HISTOTRAC * HLA Antibody Screen - SAB (Class I and Class II) (12/11/2024 10:00 AM CDT) Pathologist [facility] Class I Treatment EDTA HISTOTRAC Class I Dilution 1:1 HISTOTRAC Class I Tested Date 12/15/2024 HISTOTRAC Class I Result Positive HISTOTRAC Class I CPRA 87 HISTOTRAC Class I Increased Risk B7, B8, B18, B27, B35, B39, B41, B42, B45, B48, B50, B54, B55, B56, B60, B61, B62, B67, B75, B81, Bw6 HISTOTRAC Class I Moderate Risk B64, B65, B71, B72, B76, B78, B82 HISTOTRAC Class I Low Risk A34, A66, A68; B13, B46, B73; Cw1, Cw8, Cw9, Cw10, Cw12, Cw14 HISTOTRAC Class I Reportable Comments Bw6 pattern present. HISTOTRAC Class II Treatment EDTA HISTOTRAC Class II Dilution 1:1 HISTOTRAC Class II Tested Date 12/15/2024 HISTOTRAC Class II Result Negative HISTOTRAC Class II CPRA 0 HISTOTRAC Class II Low Risk DPB1*14:01 HISTOTRAC 12/11/2024 10:0 0 AM CDT 12/16/2024 1:51 PM CDT Narrative HISTOTRAC - 12/16/2024 1:51 PM CDT Single-antigen HLA antibody screen is performed on serum samples using a method developed and validated by the [facility] HLA laboratory based on an FDA-approved IVD kit (LABScreen Single-Antigen, [employer], [place], [place]). All patient serum samples are pretreated with EDTA before the screen to prevent complement interference. Additional serum treatments, such as adsorption and DTT treatment, may be performed as indicated. Interpretive comments: Low risk: MFI 0320-3421. Moderate risk: MFI 8791-7873. Increased risk: MFI >/= 5000. The presence of an antigen in two or more risk categories may indicate a mixed reactivity pattern among beads of multiple subtypes. Preformed donor-specific antibodies (DSA) with MFI above 2000 are predictive of positive cytotoxicity crossmatch (Hum Immunol 2010;71:268-73. Hum Immunol 2012;73:497- 604) and carry a higher risk of humoral rejection. For our solid-organ transplant programs, unacceptable antigens (UA) for transplant candidates are defined by MFI >/= 2000 with some exceptions. UA are listed at UNOS and used to generate calculated PRA (cPRA) rounded to the nearest integer. In the post-transplant setting, MFI values from donor-specific beads are listed in the DSA report to provide additional information. It is important to note that this test is approved as a qualitative test and the MFI values are not strictly linear. For platelet refractoriness: An empirical cutoff value of MFI >/= 2000 has been used in our center; a higher cutoff value such as 5000 may also be suitable for highly sensitized patients to prioritize the antigens to avoid. Testing performed at the [facility], [facility], 5th floor, [place], [address]. CLIA # [id number]. Jigna Hurst, Ph.D., Ux Ui Designer, HLA Laboratory Shashank Armas M.D., Ph.D., [facility], HLA Laboratory Angelita Farias, Ph.D., CLIA [facility], [facility] Current methodology and interpretive comments last revised on 05/26/2022. us Nathalie Wheat MD LAB BLOOD ORDERABLE S Final Result HISTOTRAC * (ABNORMAL) eGFR (01/18/2024 8:20 AM CDT) eGFR 7(L) >=60 mL/min/1. 73 m2 Comment: Interpretive Data Reference Interval Normal >/= 90 mL/min/1.73m2 Mildly decreased* 60 - 89 mL/min/1.73m2 Mildly to moderately decreased 45 - 59 mL/min/1.73m2 Moderately to severely decreased 30 - 44 mL/min/1.73m2 Severely decreased 15 - 29 mL/min/1.73m2 Kidney Failure < 15 mL/min/1.73m2 *Relative to young adult level Estimated glomerular filtration rate is determined by the 2020 CKD-EPI equation recommended by the National Kidney Foundation (A Unifying Approach to GFR Estimation: Recommendations of the NKF-ASK Task Force on Reassessing the Inclusion of Race in Diagnosing Kidney Disease, JASN 2020). The CKD-EPI equation should not be used for patients with unstable renal function and has not been validated in children and those over 70. Current interpretive data was last reviewed 2021. Blood 01/18/2024 8:20 AM CDT 01/18/2024 8:24 AM CDT Evan Kunz MD LAB BLOOD ORDERABLES Final Resul t SHELLY [address] [facility] [place] [address] * Hepatitis C antibody Blood (11/21/2023 8:14 AM CDT) Hep C Ab Nonreactive Nonreactive Comment:Antibodies to HCV no t detected. Does NOT exclude the possibility of recent exposure to HCV. Current interpretive data was last revised on 21 Blood 11/21/2023 8:14 AM CDT 11/21/2023 8:41 AM CDT Brianda Leavitt MD LAB MICROBIOLOGY - GENERAL ORDERABLES Final Result Performing Organization Address [facility] Co de Phone Number [facility] Department [place] [address] * (ABNORMAL) Hemoglobin A1c (11/21/2023 8:14 AM CDT) Hgb A1C 6.1(H) 4.0 - 5.6 % Estimated Average Glucose 128 mg/dL [facility] Comment: The ADA recommends reporting an estimated Average Glucose (eAG) with all Hemoglobin A1c results using the equation derived from a study of 507 normal and diabetic adults. Minority populations were underrepresented and children were not included. (Diabetes Care 2020; 43(S1): S66-S76). The eAG is not equivalent to a fasting glucose. Blood 11/21/2023 8:14 AM CDT 11/21/2023 8:41 AM CDT us Brianda Leavitt MD LAB BLOOD ORDERAB LES Final Result Performing Organization Address [facility] Co de Phone Number [facility] [place] [address] * Lipid panel (10/29/2023 3:10 PM CDT) Cholesterol 147 30 - 199 mg/dL Comment: Interpretive Data Ages < or = 19 years Acceptable: <170 mg/dL Borderline high: 170-199 mg/dL High: >or= 200 mg/dL Ages > or = 20 years Desirable: <200 mg/dL Borderline high: 200-239 mg/dL High: >or= 240 mg/dL Literature References: 1. Expert Panel on Integrated Guidelines for Cardiovascular Health and Risk Reduction in Children and Adolescents. Pediatrics 2011;128:S213 2. NCEP Expert Panel. Circulation 2004;110:227 Current Interpretive Data was last revised on 2017. Triglycerides 49 <=149 mg/dL [facility] Comment: Interpretive Data Ages < or = 9 years Acceptable: <75 mg/dL Borderline high: 75-99 mg/dL High: >or= 100 mg/dL Ages 10 to 20 years Acceptable: <90 mg/dL Borderline high: 90-129 mg/dL High: >or= 130 mg/dL Ages > or = 20 years Desirable: <150 mg/dL Borderline high: 150-199 mg/dL High: 200-499 mg/dL Very high: >or= 499 mg/dL Literature References: 1. Expert Panel on Integrated Guidelines for Cardiovascular Health and Risk Reduction in Children and Adolescents. Pediatrics 2011;128:S213 2. NCEP Expert Panel. Circulation 2004;110:227 Current Interpretive Data was last revised on 2017. HDL 98 >=40 mg/dL [facility] Comment: Interpretive Data Ages < or = 19 years Acceptable: >45 mg/dL Borderline low: 40-45 mg/dL Low: <40 mg/dL Ages > or = 20 years Desirable: >or= 60 mg/dL Low: <40 mg/dL Literature References: 1. Expert Panel on Integrated Guidelines for Cardiovascular Health and Risk Reduction in Children and Adolescents. Pediatrics 2011;128:S213 2. NCEP Expert Panel. Circulation 2004;110:227 Current Interpretive Data was last revised on 2017. LDL, calculated 39 <=129 mg/dL [facility] Comment: Interpretive Data Ages < or = 19 years Acceptable: <110 mg/dL Borderline high: 110-129 mg/dL High: >or= 130 mg/dL Ages > or = 20 years Optimal: <100 mg/dL Near optimal: 100-129 mg/dL Borderline high: 130-159 mg/dL High: >160 mg/dL Literature References: 1. Expert Panel on Integrated Guidelines for Cardiovascular Health and Risk Reduction in Children and Adolescents. Pediatrics 2011;128:S213 2. NCEP Expert Panel. Circulation 2004;110:227 Current Interpretive Data was last revised on 2017. Non-HDL Cholesterol 49 mg/dL [facility] Comment: Interpretive Data Ages < or = 19 years Acceptable: <120 mg/dL Borderline high: 120-144 mg/dL High: >145 mg/dL Ages > or = 20 years When triglycerides are >200 mg/dL, Non-HDL cholesterol is a secondary target of therapy with treatment goals that are 30 mg/dL greater than the LDL cholesterol target. Literature References: 1. Expert Panel on Integrated Guidelines for Cardiovascular Health and Risk Reduction in Children and Adolescents. Pediatrics 2011;128:S213 2. NCEP Expert Panel. Circulation 2004;110:227 Current Interpretive Data was last revised on 2017. Chol/HDL ratio 2 SHELLY BOYCE Blood 10/29/2023 3:10 PM CDT 10/29/2023 3:29 PM CDT us Kanwal BALLESTEROS LAB BLOOD ORDERABLES Final Result SHELLY CARLI [facility] Department [place] [address] from Last 3 Months or Most Recently Relevant to Health Maintenance Insurance [facility] [employer]ANTAGE [facility] Address: [address] [address] [place] [address] TRANSPLANT [employer] MEDICARE RISK IDPA [facility] [employer] [employer] Address: [address] [address] [place] [address] [facility] [employer] [facility] Address: [address] [address] [place] [address] [place] [id number] [facility] MED[facility] [employer] [facility] Address: [address] [address] [place] [address] [employer]ANT [employer] MED[employer] RISK IDPA IDPA Advance Directives For more information, please contact: [phone] * Full Code (Latest Code Status on File) Date Activated Date Inactivated Comments 10/29/2023 2:14 PM 10/30/2023 11:13 AM Care Teams Hse Coordinator Relationship Specialty Start Date End Date Coretta Sahu DO [address] [place] [address] [place] [address] PCP - General Sports Medicine 03/31/22 Mirella Rasmussen, RN [address] [address] Director Life Sales 03/31/22 Louis Fenton MD [address] [place] [address] Nephrology 04/18/22 Mahendra [facility]letary MD [facility] [address] [place] [address] Consulting Physician Cardiovascular Disease 12/21/23 Juwan Hurtado MD [facility] [address] [place] [address] Consulting Physician Cardiology 05/09/24
--- OUTSIDE RECORDS SUMMARY | 2025-03-11 09:36 | XMS_ITS | Encounter Summary ---
Author Organization [facility] Healthcare Address [address] [place] [address] Care Team Providers Care Booster Pump Operator Name Role Phone Coretta Sahu DO Primary Care Provider [phone] Mirella Rasmussen RN Unavailable Louis Fenton MD Unavailable Mahendra Singletary MD Unavailable [phone] Juwan Hurtado MD Unavailable [phone] Encounter Details Date Type Department Care Team (Late st Contact Info) Description 01/03/2024 [facility] [address] [facility] [address] [place], [place] [id number] Shiraz Kunz MD [address] [facility] [address] [place] [address] Social History Tobacco Use Types Packs/Day Years Used Date Smoking Tobacco: Every Day Cigarettes 0.5 8 Passive Smoke Exposure: Current AUDIT-C Answer Date Recorded Q1: How often do you have a drink containing alc ohol? Never 05/11/2023 Average Number of Drinks Not on file 024 Frequency of Binge Drinking Not on file 05/01 Personal Safety Answer Date Recorded Have you ever been in or are you currently in a harmful physical or emotional relationship or is someone making you feel afraid or unsafe? 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 Gender Identity Female 09/21/2022 10:17 AM CDT Sexual Orientation Straight 09/21/2022 10 :17 AM CDT documented as of this encounter Plan of Treatment Not on file documented as of this encounter Visit Diagnoses Not on filedocumented in this encounter Care Teams Booster Pump Operator Relationship Specialty Start Date End Date Luis Alberto CorettaDO [address] [place] [address] [place] [address] PCP - General Sports Medicine 03/31/22 Mirella Rasmussen, RN [address] [address] Riprap Man 03/31/22 Louis Fenton MD [address] [place] [address] [place] [address] Nephrology 04/18/22 Mahendra Singletary MD [address] [address] Consulting Physician Cardiovascular Disease 12/21/23 Juwan Hurtado MD [facility] [address] [place] [address] Consulting Physician Cardiology 05/09/24 documented as of this encounter
--- OUTSIDE RECORDS SUMMARY | 2025-03-11 09:36 | XMS_ITS | Encounter Summary ---
Author Organization [facility] Healthcare Address [address] [place] [address] Care Team Providers Care Center Rep Name Role Phone Coretta Sahu DO Primary Care Provider Mirella Rasmussen RN Unavailable Louis Fenton MD Unavailable Mahendra Singletary MD Unavailable [phone] Juwan Hurtado MD Unavailable [phone] Encounter Details Date Type Department Care Team (Late st Contact Info) Description 09/30/[address] [facility] 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 Gender Identity Female 09/21/2022 10:17 AM CDT Sexual Orientation Straight 09/21/2022 10 :17 AM CDT documented as of this encounter Plan of Treatment Not on file documented as of this encounter Visit Diagnoses Not on filedocumented in this encounter Care Teams Center Rep Relationship Specialty Start Date End Date Coretta Sahu DO [address] [place] [address] [place] [address] PCP - General Sports Medicine 03/31/22 Mirella Rasmussen, RN [address] [place] [address] [place] [address] Conference Manager 03/31/22 Louis Fenton MD [address] [place] [address] [place] [address] Nephrology 04/18/22 Mahendra Singletary MD [address] [address] Consulting Physician Cardiovascular Disease 12/21/23 Juwan Hurtado MD [facility] [address] [place] [address] Consulting Physician Cardiology 05/09/24 documented as of this encounter
--- OUTSIDE RECORDS SUMMARY | 2025-03-11 09:36 | XMS_ITS | Patient Health Record ---
Author Organization [facility] Address [address] [facility] [address] [place] [address] Care Team Providers Care Conductor Yard Name Role Phone Coretta Sahu Primary Care Provider Tam Cardenas Unavailable [phone] Allergies Allergen (clinical drug ingredient) Drug/Non Drug Allergy documented on EMR Reaction Allergy Type Onset Date Status Iodine Rash Drug Allergy Active levothyroxine Levothyroxine Sodium headache an d muscle pain Drug Allergy Active diltiazem dilTIAZem Unknown Drug Allergy Active metoprolol Metoprolol Unknown Drug Allergy Activ e rosuvastatin Rosuvastatin Rash Drug Allergy A ctive Results Component Value Reference Range Notes T4, FREE Reviewed date:08/09/2024 11:31:11 AM Interpretation: Performing Lab: Notes/Report: T4, FREE 0.79 TSH Reviewed date:08/09/2024 01:50:15 PM Interpretation: Performing Lab: Notes/Report: TSH 11.400 T3, TOTAL Reviewed date:08/13/2024 12:43:38 PM Interpretation:Normal Performing Lab: Notes/Report: Normal T3, TOTAL 85 Reason For Referral No Information Medications Medication SIG (Take, Route, Frequency, Duration) Notes Start Date End Date Status HumaLOG KwikPen 200 UNIT/ML 10 units subcutaneously Three times a day Active hydrALAZINE HCl 50 MG 1 tablet with food Orally Twice a day Active Dexcom G7 Sensor - - - every 10 days 08/11/2023 Active Lancets - use one lancet to check blood glucose levels three times a day; Duration: 90 days E10.65; please dispense per insurance formulary. 11/21/2024 Active Carvedilol 25 MG 2 tabs Orally 2 time s a day duplicate Active Calcium Acetate 667 MG 2 tablets with meals Orally Three times a day; Duration: 1 days DENIED: Provider does not manage this medication. Please have patient contact her PCP. Thank you. 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 POOL INSTALLER Thyroid 120 MG 1 tablet on an empty stomach Orally Once a day; Duration: 30 days patient must call office for refills; E03.9 02/09/2024 Active BD Pen Needle Alexa 2nd Gen 32G X 4 MM to inject insulin subcutaneously Four times a day Active orangutrans Next Gen Monitor w/Device dispense one kit for blood sugar monitoring three times a day; Duration: 30 days 11/21/2024 Active Dexcom G7 Allergy Physician - as directed Active orangutrans Next Test - use one strip via meter 3 times a day; Duration: 90 days 11/21/2024 Active Social History Tobacco Use: Social History Observation Description Date Details (start date - stop date) Current Smoker NA - NA Tobacco Use Question Answer Notes Tobacco use: Current smoker Problems Problem Type SNOMED Code ICD Code Onset Dates Problem Status W/U Status Risk Notes Problem Mixed hyperlipidemia (898674604) Mixed hyperlipidemia (E78.2) Active confirmed Problem Essential hypertension (23036221) Essential (primary) hypertension (I10) Active confirmed Problem Polyneuropathy due to diabetes mellitus type I (575273825) Type 1 diabetes mellitus with diabetic polyneuropathy (E10.42) Active confirmed Problem Obesity due to excess calories (294634945) Other obesity due to excess calories (E66.09) Active confirmed Problem Dietary management surveillance (423980657) Dietary counseling and surveillance (Z71.3) Active confirmed Problem Long-term current use of insulin (289840136) 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 (Z79.4) Active confirmed Problem Hyperglycemia due to type 1 diabetes mellitus (501715634808587) Hyperglycemia due to type 1 diabetes mellitus (E10.65) Active confirmed Problem Hypothyroidism (87394838) Hypothyroidism (acquired) (E03.9) Active confirmed Problem Tobacco abuse (8349679906) Tobacco abuse (Z72.0) Active confirmed Problem End stage renal disease (31797105) ESRD (end stage renal disease) (N18.6) Active confirmed Vital Signs Respiratory Rate 18 /min 08/09/2024 Blood pressure diastolic 50 mm Hg 08/09/2024 Height 65 in 08/09/2024 Blood pressure systolic 142 mm Hg 08/09/2024 Weight 162 lbs 08/09/2024 BMI 26.96 kg/m2 08/09/2024 Encounters Encounter Location Date Provider Diagnosis [address] [address] 04/05/2024 Tam Raju Hyperglycemia due to type 1 diabetes mellitus E10.65 ; Type 1 diabetes mellitus with diabetic polyneuropathy E10.42 ; Essential (primary) hypertension I10 ; Mixed hyperlipidemia E78.2 ; Carotid bruit R09.89 ; ESRD (end stage renal disease) N18.6 ; retirement (current) use of insulin Z79.4 ; Hypothyroidism (acquired) E03.9 ; Tobacco abuse Z72.0 ; Dietary counseling and surveillance Z71.3 and Other obesity due to excess calories E66.[address] [address] 08/09/2024 Atm Raju Hyperglycemia due to type 1 diabetes mellitus E10.65 ; Type 1 diabetes mellitus with diabetic polyneuropathy E10.42 ; Essential (primary) hypertension I10 ; Mixed hyperlipidemia E78.2 ; Carotid bruit R09.89 ; ESRD (end stage renal disease) N18.6 ; retirement (current) use of insulin Z79.4 ; Hypothyroidism (acquired) E03.9 ; Tobacco abuse Z72.0 ; Dietary counseling and surveillance Z71.3 and Other obesity due to excess calories E66.[address] [address] 04/02/2024 Tam Raju Hypothyroidism (acquired) E03.[address] [address] 06/24/2024 Tam Raju Hyperglycemia due to type 1 diabetes mellitus E10.[address] [address] 06/27/2024 Tam Raju Hyperglycemia due to type 1 diabetes mellitus E10.65 [facility] [address] [facility] [address] [place] [address] 07/09/2024 Tam Raju [address] [address] 09/02/2024 Tam Raju Hyperglycemia due to type 1 diabetes mellitus E10.65 [facility] [address] [facility] [address] [place] [address] 11/13/2024 Tam Raju [facility] [address] [facility] [address] [place] [address] 11/13/2024 Tam Raju Hypothyroidism (acquired) E03.[address] [address] 11/21/2024 Tam Raju Assessments Encounter Date Diagnosis (ICD Code) Assessment Notes Treatment Notes Treatment Clinical Notes Section Notes 04/02/2024 Hypothyroidism (acquired) (ICD-10 - E03.9) 04/05/2024 Hyperglycemia due to type 1 diabetes mellitus [...] Restart med and recheck in 6 weeks 06/24/2024 Hyperglycemia due to type 1 diabetes mellitus (ICD-10 - E10.65) 06/27/2024 Hyperglycemia due to type 1 diabetes mellitus (ICD-10 - E10.65) 08/09/2024 Hyperglycemia due to type 1 diabetes mellitus [...] on 90 mg, cahnge to 120 mg 09/02/2024 Hyperglycemia due to type 1 diabetes mellitus (ICD-10 - E10.65) 11/13/2024 Hypothyroidism (acquired) (ICD-10 - E03.9) 08/09/2024 Type 1 diabetes mellitus with diabetic polyneuropathy (ICD-10 - E10.42) 04/05/2024 Type 1 diabetes mellitus with diabetic polyneuropathy (ICD-10 - E10.42) 04/05/2024 Essential (primary) hypertension (ICD-10 - I10) controlled. 2 g sodium diet. Blood pressure goal less than 130/80. 08/09/2024 Essential (primary) hypertension (ICD-10 - I10) controlled. 2 g sodium diet. Blood pressure goal less than 130/80. 08/09/2024 Mixed hyperlipidemia (ICD-10 - E78.2) COntrolled. LDL goal < 100. 04/05/2024 Mixed hyperlipidemia (ICD-10 - E78.2) COntrolled. LDL goal < 100. 04/05/2024 Carotid bruit (ICD-10 - R09.89) 08/09/2024 Carotid bruit (ICD-10 - R09.89) 08/09/2024 ESRD (end stage renal disease) (ICD-10 - N18.6) 04/05/2024 ESRD (end stage renal disease) (ICD-10 - N18.6) 04/05/2024 retirement (current) use of insulin (ICD-10 - Z79.4) 08/09/2024 retirement (current) use of insulin (ICD-10 - Z79.4) 08/09/2024 Hypothyroidism (acquired) (ICD-10 - E03.9) 04/05/2024 Hypothyroidism (acquired) (ICD-10 - E03.9) 04/05/2024 Tobacco abuse (ICD-10 - Z72.0) 08/09/2024 Tobacco abuse (ICD-10 - Z72.0) 08/09/2024 Dietary counseling and surveillance (ICD-10 - Z71.3) 04/05/2024 Dietary counseling and surveillance (ICD-10 - Z71.3) 04/05/2024 Other obesity due to excess calories (ICD-10 - E66.09) 08/09/2024 Other obesity due to excess calories (ICD-10 - E66.09) Plan Of Treatment Pending Test Test Name Order Date Hemoglobin A1C 01/31/2025 Future Test Test Name Order Date Ultrasound : Renal Artery Duplex 022 Echocardiogram 08/13/2021 Medical (General) History Medical History History ICD Code Anemia Anxiety Asthma Chronic Kidney Disease Chronic Renal Insufficiency Diabetes Mellitus Type I Diabetic Macular Edema Diabetic Neuropathy Diabetic Retinopathy hirsutism HTN Hyperlipidemia Kidney Disease Left Ventricular Hypertrophy Microalbuminuria Mitral regurgitation Obesity Osteopenia Tobacco Use Vitamin D deficiency Surgical History Surgery Date(Month/Year) Section 2004 Colonoscopy 12/2005 Echocardiogram 11/15/2016 EGD 12/2005 Dialysis Port Placed 10/2021 Hospitalization History Reason Date(Month/Year) pneumonia 06/2024 COVID 03/2023 Dialysis port placed 10/2021 Hypertension 07/2021
== END 2025-03-11 09:18 | disposition home or self-care (01) ==
PROVIDERS: PCP Family Medicine Sports Medicine; Visit Provider Internal Medicine Nephrology
DX: R53.1 Weakness (principal)
CPT/HCPCS: 70450